=== PATIENT | female | born 1955 | race Caucasian/White ===

== ENCOUNTER 2016-12-23 12:52 | Outpatient (CLI) | payer MEDICAID | END 2016-12-23 12:53 | disposition home or self-care (01) | DX: L40.0 Psoriasis vulgaris (principal); Z79.899 Other long term (current) drug therapy ==

== ENCOUNTER 2017-01-20 10:23 | Outpatient (CLI) | payer MEDICAID | END 2017-01-20 10:24 | disposition home or self-care (01) | DX: L40.0 Psoriasis vulgaris (principal); Z79.899 Other long term (current) drug therapy ==

== ENCOUNTER 2017-02-20 09:06 | Outpatient (CLI) | payer MEDICAID | END 2017-02-20 09:07 | disposition home or self-care (01) | DX: L40.0 Psoriasis vulgaris (principal); Z79.899 Other long term (current) drug therapy ==

== ENCOUNTER 2017-03-27 10:20 | Outpatient (CLI) | payer MEDICAID ==
[2017-03-27 17:52] LABS: EOSINOPHILS # (AUTO) 0.1 10^3/uL (0.0-0.7); EOSINOPHILS % (AUTO) 1.5 %; HCT - HEMATOCRIT 39.7 % (37.0-47.0); HGB - HEMOGLOBIN 13.2 g/dL (12.0-16.0); LYMPHOCYTES # (AUTO) 0.7 10^3/uL (1.5-3.5); LYMPHOCYTES % (AUTO) 14.8 %; MEAN CORPUSCULAR HEMOGLOBIN 34.5 pg (27.0-31.0); MEAN CORPUSCULAR HGB CONC 33.2 g/dL (32.0-36.0); MEAN PLATELET VOLUME 7.7 fL (7.9-10.8); MONOCYTES % (AUTO) 21.1 %; NEUTROPHILS % (AUTO) 61.6 %; NUCLEATED RED BLOOD CELLS AUTO 0.2 /100WBC; RED BLOOD COUNT 3.82 10^6/uL (4.20-5.40); RED CELL DISTRIBUTION WIDTH 14.4 % (12.0-15.0); UNCORRECTED WHITE BLOOD COUNT 4.9 x10^3/uL; WHITE BLOOD COUNT 4.9 x10^3/uL (4.8-10.8)
[2017-03-27 18:07] LABS: ALBUMIN/GLOBULIN RATIO 1.4 (1.0-2.2); BILIRUBIN,TOTAL 0.6 mg/dL (0.2-1.0); CALCIUM 9.3 mg/dL (8.5-10.3); CREATININE 0.7 mg/dL (0.4-1.0); POTASSIUM 4.4 mmol/L (3.5-5.0); TOTAL PROTEIN 7.3 g/dL (6.7-8.2)
== END 2017-03-27 10:21 | disposition home or self-care (01) ==
LOC: LAB.F 10:20
PROVIDERS: ATTEND Physician Assistant Medical
DX: L40.0 Psoriasis vulgaris (principal)
CPT/HCPCS: 36415; 80053; 85025

== ENCOUNTER 2017-04-08 14:30 | Outpatient (CLI) | payer MEDICAID ==
[2017-04-08 17:44] LABS: BASOPHILS # (AUTO) 0.1 10^3/uL (0.0-0.1); BASOPHILS % (AUTO) 1.1 %; EOSINOPHILS # (AUTO) 0.1 10^3/uL (0.0-0.7); EOSINOPHILS % (AUTO) 1.3 %; HCT - HEMATOCRIT 36.2 % (37.0-47.0); HGB - HEMOGLOBIN 12.1 g/dL (12.0-16.0); LYMPHOCYTES # (AUTO) 1.1 10^3/uL (1.5-3.5); LYMPHOCYTES % (AUTO) 20.9 %; MEAN CORPUSCULAR HEMOGLOBIN 34.5 pg (27.0-31.0); MEAN CORPUSCULAR HGB CONC 33.4 g/dL (32.0-36.0); MEAN CORPUSCULAR VOLUME 103.2 fL (81.0-99.0); MONOCYTES % (AUTO) 19.5 %; NEUTROPHILS # (AUTO) 3.1 10^3/uL (1.5-6.6); NEUTROPHILS % (AUTO) 57.2 %; RED BLOOD COUNT 3.51 10^6/uL (4.20-5.40); RED CELL DISTRIBUTION WIDTH 14.3 % (12.0-15.0); UNCORRECTED WHITE BLOOD COUNT 5.4 x10^3/uL; WHITE BLOOD COUNT 5.4 x10^3/uL (4.8-10.8)
[2017-04-08 17:57] LABS: ALBUMIN/GLOBULIN RATIO 1.5 (1.0-2.2); BILIRUBIN,TOTAL 0.5 mg/dL (0.2-1.0); CALCIUM 9.7 mg/dL (8.5-10.3); CREATININE 0.8 mg/dL (0.4-1.0); POTASSIUM 4.4 mmol/L (3.5-5.0); TOTAL PROTEIN 7.6 g/dL (6.7-8.2)
== END 2017-04-08 14:31 | disposition home or self-care (01) ==
LOC: LAB.F 14:30
PROVIDERS: ATTEND Physician Assistant Medical
DX: L40.0 Psoriasis vulgaris (principal)
CPT/HCPCS: 36415; 80053; 85025

== ENCOUNTER 2017-04-25 09:47 | Outpatient (CLI) | payer MEDICAID ==
[2017-04-25 17:30] LABS: BASOPHILS # (AUTO) 0.1 10^3/uL (0.0-0.1); BASOPHILS % (AUTO) 0.9 %; EOSINOPHILS # (AUTO) 0.1 10^3/uL (0.0-0.7); EOSINOPHILS % (AUTO) 1.6 %; HCT - HEMATOCRIT 39.4 % (37.0-47.0); HGB - HEMOGLOBIN 13.2 g/dL (12.0-16.0); LYMPHOCYTES # (AUTO) 0.9 10^3/uL (1.5-3.5); LYMPHOCYTES % (AUTO) 15.2 %; MEAN CORPUSCULAR HEMOGLOBIN 34.8 pg (27.0-31.0); MEAN CORPUSCULAR HGB CONC 33.5 g/dL (32.0-36.0); MEAN CORPUSCULAR VOLUME 103.9 fL (81.0-99.0); MEAN PLATELET VOLUME 7.8 fL (7.9-10.8); MONOCYTES # (AUTO) 0.9 10^3/uL (0.0-1.0); MONOCYTES % (AUTO) 15.8 %; NEUTROPHILS # (AUTO) 3.7 10^3/uL (1.5-6.6); NEUTROPHILS % (AUTO) 66.5 %; RED BLOOD COUNT 3.79 10^6/uL (4.20-5.40); RED CELL DISTRIBUTION WIDTH 14.4 % (12.0-15.0); UNCORRECTED WHITE BLOOD COUNT 5.6 x10^3/uL; WHITE BLOOD COUNT 5.6 x10^3/uL (4.8-10.8)
[2017-04-25 20:36] LABS: ALBUMIN/GLOBULIN RATIO 1.3 (1.0-2.2); BILIRUBIN,TOTAL 0.5 mg/dL (0.2-1.0); CALCIUM 9.6 mg/dL (8.5-10.3); CREATININE 0.7 mg/dL (0.4-1.0); POTASSIUM 4.3 mmol/L (3.5-5.0); TOTAL PROTEIN 7.9 g/dL (6.7-8.2)
== END 2017-04-25 09:48 | disposition home or self-care (01) ==
LOC: LAB.F 09:47
PROVIDERS: ATTEND Physician Assistant Medical
DX: L40.0 Psoriasis vulgaris (principal)
CPT/HCPCS: 36415; 80053; 85025

== ENCOUNTER 2017-05-15 09:04 | Outpatient (CLI) | payer MEDICAID ==
[2017-05-15 17:56] LABS: BASOPHILS # (AUTO) 0.1 10^3/uL (0.0-0.1); BASOPHILS % (AUTO) 2.2 %; EOSINOPHILS # (AUTO) 0.1 10^3/uL (0.0-0.7); EOSINOPHILS % (AUTO) 2.1 %; HCT - HEMATOCRIT 37.8 % (37.0-47.0); HGB - HEMOGLOBIN 12.8 g/dL (12.0-16.0); LYMPHOCYTES % (AUTO) 26.7 %; MEAN CORPUSCULAR HEMOGLOBIN 35.3 pg (27.0-31.0); MEAN CORPUSCULAR VOLUME 103.8 fL (81.0-99.0); MONOCYTES # (AUTO) 0.8 10^3/uL (0.0-1.0); MONOCYTES % (AUTO) 21.6 %; NEUTROPHILS # (AUTO) 1.9 10^3/uL (1.5-6.6); NEUTROPHILS % (AUTO) 47.4 %; NUCLEATED RED BLOOD CELLS AUTO 0.3 /100WBC; RED BLOOD COUNT 3.64 10^6/uL (4.20-5.40); UNCORRECTED WHITE BLOOD COUNT 3.9 x10^3/uL; WHITE BLOOD COUNT 3.9 x10^3/uL (4.8-10.8)
[2017-05-15 18:21] LABS: ALBUMIN/GLOBULIN RATIO 1.7 (1.0-2.2); BILIRUBIN,TOTAL 0.4 mg/dL (0.2-1.0); CALCIUM 9.4 mg/dL (8.5-10.3); CREATININE 0.6 mg/dL (0.4-1.0); POTASSIUM 4.3 mmol/L (3.5-5.0); TOTAL PROTEIN 7.2 g/dL (6.7-8.2)
== END 2017-05-15 09:05 | disposition home or self-care (01) ==
LOC: LAB.F 09:04
PROVIDERS: ATTEND Physician Assistant Medical
DX: L40.0 Psoriasis vulgaris (principal)
CPT/HCPCS: 36415; 80053; 85025

== ENCOUNTER 2017-06-11 10:09 | Outpatient (CLI) | payer MEDICAID ==
[2017-06-11 17:42] LABS: BASOPHILS % (AUTO) 1.1 %; EOSINOPHILS # (AUTO) 0.1 10^3/uL (0.0-0.7); EOSINOPHILS % (AUTO) 1.6 %; HCT - HEMATOCRIT 39.3 % (37.0-47.0); HGB - HEMOGLOBIN 13.2 g/dL (12.0-16.0); LYMPHOCYTES # (AUTO) 0.9 10^3/uL (1.5-3.5); LYMPHOCYTES % (AUTO) 20.6 %; MEAN CORPUSCULAR HEMOGLOBIN 34.1 pg (27.0-31.0); MEAN CORPUSCULAR HGB CONC 33.5 g/dL (32.0-36.0); MEAN CORPUSCULAR VOLUME 101.9 fL (81.0-99.0); MEAN PLATELET VOLUME 7.9 fL (7.9-10.8); MONOCYTES # (AUTO) 0.8 10^3/uL (0.0-1.0); MONOCYTES % (AUTO) 20.1 %; NEUTROPHILS # (AUTO) 2.4 10^3/uL (1.5-6.6); NEUTROPHILS % (AUTO) 56.6 %; NUCLEATED RED BLOOD CELLS AUTO 0.1 /100WBC; RED BLOOD COUNT 3.86 10^6/uL (4.20-5.40); RED CELL DISTRIBUTION WIDTH 12.9 % (12.0-15.0); UNCORRECTED WHITE BLOOD COUNT 4.2 x10^3/uL; WHITE BLOOD COUNT 4.2 x10^3/uL (4.8-10.8)
[2017-06-11 18:16] LABS: ALBUMIN/GLOBULIN RATIO 1.2 (1.0-2.2); BILIRUBIN,TOTAL 0.4 mg/dL (0.2-1.0); CALCIUM 9.4 mg/dL (8.5-10.3); CREATININE 0.6 mg/dL (0.4-1.0); POTASSIUM 4.1 mmol/L (3.5-5.0); TOTAL PROTEIN 7.7 g/dL (6.7-8.2)
== END 2017-06-11 10:10 | disposition home or self-care (01) ==
LOC: LAB.F 10:09
PROVIDERS: ATTEND Physician Assistant Medical
DX: Z79.899 Other long term (current) drug therapy (principal)
CPT/HCPCS: 36415; 80053; 85025

== ENCOUNTER 2017-07-27 10:18 | Emergency (ER) | payer MEDICAID ==
[2017-07-27 10:25] VITALS: BP 148/89
[2017-07-27] MEDS ORDERED: IBUPROFEN 400 MG TABLET PO STA (10:44)
[2017-07-27] MEDS ORDERED: ACETAMINOPHEN 325 MG TABLET PO STA (10:44)
--- NOTE | 2017-07-27 10:47 | ED Physician Documentation ---
History of Present Illness - Stated complaint Stated Complaint: L SHOULDER INJURY - Chief complaint Chief Complaint: Trauma Ext - Additonal information Additional information: hx from pt 62 female trip and fall -> L shoulder injury no head neck or other injury no blood thinners Review of Systems Constitutional: denies: Fever Cardiac: denies: Chest pain / pressure GI: denies: Abdominal Pain Musculoskeletal: reports: Joint pain. denies: Neck pain Neurologic: denies: Head injury Endocrine: denies: Easy bruising / bleeding Immunocompromised: denies: Immunocompromised PD PAST MEDICAL HISTORY - Past Medical History Cardiovascular: Hypertension Respiratory: Pneumonia Neuro: None Endocrine/Autoimmune: None GI: GERD : None HEENT: None Psych: Anxiety Musculoskeletal: None Derm: Psoriasis - Past Surgical History Past Surgical History: No General: EGD Derm: Skin cancer surgery - Present Medications Home Medications: Ambulatory Orders Medication Instructions Recorded Confirmed LORazepam [Ativan] 1 mg PO PRN PRN 11/23/15 07/27/17 Triamterene/Hydrochlorothiazid 1 tab PO DAILY 11/23/15 07/27/17 [Triamterene-Hctz 37.5-25 mg Cp] Lidocaine Patch 5% [Lidoderm Patch] 1 each TOP DAILY PRN #10 patch 07/27/17 - Allergies Allergies/Adverse Reactions: Allergies Allergy/AdvReac Type Severity Reaction Status Date / Time Sulfa (Sulfonamide AdvReac Hallucinati Verified 11/23/15 10:19 Antibiotics) ons - Social History Does the pt smoke?: Yes Smoking Status: Current every day smoker Does the pt drink ETOH?: Yes Does the pt have substance abuse?: No - Immunizations Immunizations are current?: No - POLST Patient has POLST: No PD ED PE NORMAL - Vitals Vital signs reviewed: Yes - HEENT HEENT: Atraumatic - Neck Neck: No bony TTP - Cardiac Cardiac: RRR - Respiratory Respiratory: No respiratory distress, Clear bilaterally - Extremities Extremities: Other (L shoulder with bruising ant and lateral, limited ROM 2/2 pain, TTP humeral head, MSV intact including deltoid) Results - Vitals Vitals: Vital Signs - 24 hr 07/27/17 10:20 Temperature 36.7 C Heart Rate 92 Respiratory 16 Rate Blood Pressure 148/89 H O2 Saturation 96 Oxygen O2 Source Room air - Rads (name of study) shoulder Radiology: See rad report (neg) Departure - Departure Disposition: Home, Self Care Clinical Impression: Contusion of shoulder, left Qualifiers: Encounter type: initial encounter Qualified Code(s): S40.012A - Contusion of left shoulder, initial encounter Condition: Good Instructions: ED Contusion Shoulder Follow-Up: Mayra Cordoba PA [Primary Care Provider] - Prescriptions: Lidocaine Patch 5% [Lidoderm Patch] 1 each TOP DAILY PRN #10 patch PRN Reason: Pain Comments: Thankfully the xray does not show any fracture or dislocation. Recommend you wear the sling as needed for but do some daily range of motion to prevent scar tissue from forming in the shoulder capsule. Motrin, tylenol, lidocaine patches and ice as needed for the pain If still very painful in two weeks, i recommend that you follow up with your PMD for a recheck and consideration of further imaging Also please get your blood pressure rechecked - it was high today Forms: Activity restrictions
[2017-07-27] MEDS ORDERED: ACETAMINOPHEN 325 MG TABLET PO ONE (10:55)
[2017-07-27] MEDS ORDERED: IBUPROFEN 400 MG TABLET PO ONE (10:55)
--- NOTE | 2017-07-27 11:06 | XRAY Preliminary Report ---
Exam: XR Shoulder 3 View LT IMPRESSION: Normal examination of the left shoulder. [facility] SITE ID: [id number]
--- NOTE | 2017-07-27 11:09 | XRAY Report ---
EXAM: LEFT SHOULDER RADIOGRAPHY 3 VIEWS EXAM DATE: 07/27/2017. CLINICAL HISTORY: Fell. Limited range of motion. COMPARISON: None. TECHNIQUE: AP, Grashey and scapular Y views. FINDINGS: Bones: Normal. No fracture or bone lesion. Joints: The glenohumeral and acromioclavicular joints appear normal. Soft tissues: No calcifications. The visualized lungs appear clear. IMPRESSION: Normal examination of the left shoulder. [facility] Referring Provider Line: [phone] SITE ID: [id number]
== END 2017-07-27 11:47 | disposition home or self-care (01) ==
LOC: ED 10:18
DX: S40.012A Contusion of left shoulder, initial encounter (principal); W01.0XXA Fall on same level from slipping, tripping and stumbling without subsequent striking against object, initial encounter; I10 Essential (primary) hypertension; K21.9 Gastro-esophageal reflux disease without esophagitis; F17.200 Nicotine dependence, unspecified, uncomplicated
CPT/HCPCS: 73030; 99283; A9270

== ENCOUNTER 2019-01-07 09:33 | Outpatient (CLI) | payer MEDICARE ==
--- NOTE | 2019-01-08 09:13 | CT Report ---
Reason: NICOTINE DEPENDENCE,CIGARETTES,UNCOMPLICATED Procedure Date: 01/07/2019 Accession Number: [id number] / [id number] Procedure: CT - Low Dose Lung Cancer Screen CPT Code: FULL RESULT: EXAM CT LUNG SCREEN EXAM DATE: 01/07/2019 09:52 AM. HISTORY: 63-year-old patient with [id number] smoking history. Currently smoking: Yes. . COMPARISON: None. TECHNIQUE: CT examination of the entire thorax without contrast was performed using low-dose technique. Thin section coronal, axial, sagittal and MIP axial images were obtained. In accordance with CT protocol optimization, one or more of the following dose reduction techniques were utilized for this exam: automated exposure control, adjustment of mA and/or KV based on patient size, or use of iterative reconstructive technique. FINDINGS: Nodules: Right upper lobe: 4 mm solid nodule 19/4; calcific density 4 mm pleural-based nodule lateral 24/4; 4 mm oval solid nodule medial 24/4; semisolid 4 mm pulmonary nodule associated with calcification 27/4; semisolid 3 mm pulmonary nodule central 27/4; 3 mm semisolid nodule 31/4. Right middle lobe: None. Right lower lobe: None. Left upper lobe: 4 mm solid pleural-based nodule along the major fissure 56/4. Left lower lobe: 3 mm semisolid nodule lateral lower lobe 107/4. Emphysema: Minimal upper lobe paraseptal emphysema. Pleura: Minor pleural parenchymal scarring changes in the apices. Aorta: Unremarkable. Mediastinum: Unremarkable. Coronary calcifications: None. Other pulmonary findings: None. Other extrapulmonary findings: None. IMPRESSION: Lung-RADS ASSESSMENT CATEGORY: 2 - benign appearance. Probability of malignancy: 1%. RECOMMENDATION: Recommended follow up based on Lung-RADS guidelines. [facility]
== END 2019-01-07 09:34 | disposition home or self-care (01) ==
LOC: DI 09:33
PROVIDERS: ATTEND Physician Assistant
DX: Z12.2 Encounter for screening for malignant neoplasm of respiratory organs (principal); F17.210 Nicotine dependence, cigarettes, uncomplicated

== ENCOUNTER 2019-03-27 22:56 | Emergency (ER) | payer MEDICARE, MEDICAID ==
--- NOTE | 2019-03-28 00:14 | ED Physician Documentation ---
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 No: Weakness, Numbness Contributing factors: No: Anticoagulated, Prior ortho surgery Similar symptoms before: Has not had sx before Recently seen: Not recently seen - Additonal information Additional information: per patient, walking up stairs at home tonight and lost her balance, fell backwards when she got to the 3rd stair. She fell onto outstretched LUE and c/o sudden onset pain with deformity at left wrist. She is right hand dominant. She denies any other injury. She denies head injury, denies LOC. She has been drinking alcohol tonight (wine) and spilled red wine onto her shirt when she fell. Review of Systems Cardiac: reports: Reviewed and negative Respiratory: reports: Reviewed and negative GI: reports: Reviewed and negative Skin: denies: Abrasion (s), Laceration (s) Musculoskeletal: reports: Joint pain (left wrist), Joint swelling (left wrist). denies: Neck pain, Back pain Neurologic: denies: Generalized weakness, Focal weakness, Numbness, Headache, Head injury, LOC PD PAST MEDICAL HISTORY - Past Medical History Past Medical History: No Other Past Medical History: denies - Past Surgical History Past Surgical History: No - Allergies Allergies/Adverse Reactions: Allergies Allergy/AdvReac Type Severity Reaction Status Date / Time Sulfa (Sulfonamide AdvReac Unknown Verified 03/27/19 23:05 Antibiotics) - Social History Does the pt smoke?: Yes Smoking Status: Current every day smoker Does the pt drink ETOH?: Yes ETOH Use: Wine Does the pt have substance abuse?: No - Immunizations Immunizations are current?: Yes PD ED PE NORMAL - Vitals Vital signs reviewed: Yes - General General: Alert and oriented X 3, Well developed/nourished, Other (mild/moderate painful discomfort) - HEENT HEENT: Atraumatic, PERRL, EOMI - Neck Neck: No bony TTP - Back Back: No spinal TTP - Derm Derm: Normal color, Warm and dry - Neuro Neuro: Alert and oriented X 3, 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 No lacerations or abrasions. LTS intact in fingertips with brisk capillary refill. strong radial pulse) Results - Vitals Vitals: Vital Signs - 24 hr 03/27/19 03/28/19 03/28/19 22:59 00:49 01:38 Temperature 36.4 C L Heart Rate 64 75 78 Respiratory 16 16 16 Rate Blood Pressure 118/83 H 140/81 H 109/70 O2 Saturation 100 99 96 Oxygen O2 Source Room air - Rads (name of study) left wrist xrays Radiology: Prelim report reviewed, See rad report repeat/post-reduction left wrist xrays Radiology: Prelim report reviewed, See rad report Procedures - Splint (location) Upper extremity left Splint applied by: Tech, Other (spint applied by tech while I held traction after reduction attempt) Type of splint: Fiberglass, Sugar tong Other: Patient tolerated well, No complications, Neurovascular intact - Reduction Body part reduced: Left, Wrist Fracture or dislocation: Fracture Anesthesia: Hematoma block, Morphine Reduction aftercare: NV intact, Splint applied, Patient tolerated well. No: Xray confirms reduction (minimal improvement on repeat xrays) PD MEDICAL DECISION MAKING - ED course Complexity details: reviewed results, re-evaluated patient, considered differential, d/w patient ED course: patient was calm and cooperative during the times I was in room with her. She admitted to alcohol intake tonight but was conversant and appropriate. I performed a hematoma block and then attempted reduction of the fracture; there appeared to be modest improvement in alignment but repeat xrays showed minimal improvement and 71 degrees of dorsal angulation. Unfortunately, prior to the results of the repeat xrays, patient left the ED. While she did indicate to me that she was concerned that her ride was going to leave without her, she did not indicate to me at any time that she was unhappy with the care she was receiving in ED. After the attempt at reduction, I did explain to her that, if the xrays did not show adequate improvement in alignment, I would need to contact the orthopedic surgeon and that he would probably need to come to ED to reduce the fracture; she indicated understanding of this plan and expressed no dissatisfaction with this. Departure - Departure Disposition: ED Elope Clinical Impression: Left wrist fracture Qualifiers: Encounter type: initial encounter Fracture type: closed Qualified Code(s): S62.102A - Fracture of unspecified carpal bone, left wrist, initial encounter for closed fracture Condition: Stable Discharge Date/Time: 03/28/19 03:50
--- NOTE | 2019-03-28 00:22 | XRAY Report ---
Reason: fall/pain Procedure Date: 03/28/2019 Accession Number: [id number] / [id number] Procedure: XR - Hand 3 View LT CPT Code: FULL RESULT: EXAM: LEFT HAND RADIOGRAPHY EXAM DATE: 03/27/2019 11:46 PM. CLINICAL HISTORY: Fell down the stairs, deformity, pain, swelling. COMPARISON: None. TECHNIQUE: 3 views. FINDINGS IMPRESSION: 1. There is a severely impacted severe dorsal displaced intra-articular fracture of the distal radius with comminution. 2. There is a mild impacted and dorsal displaced distal ulnar fracture as well. 3. Bones are moderately osteopenic. 4. 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 Moderate to severe degenerative change elsewhere about the joints of the hand. [facility]
--- NOTE | 2019-03-28 00:24 | XRAY Report ---
Reason: fall/pain Procedure Date: 03/28/2019 Accession Number: [id number] / [id number] Procedure: XR - Wrist 4 View LT CPT Code: FULL RESULT: EXAM: LEFT WRIST RADIOGRAPHY EXAM DATE: 03/27/2019 11:46 PM. CLINICAL HISTORY: Fall, pain, deformity, swelling. COMPARISON: None. TECHNIQUE: 4 views. A total of 5 exposures are provided for review. FINDINGS IMPRESSION: 1. Bones are moderately osteopenic. 2. There is a severe dorsal displaced, angulated, comminuted, as well as impacted fracture of the distal radial metaphysis. 3. Mild impacted, dorsally displaced and angulated distal ulnar fracture is also seen. 4. No definite additional fracture demonstrated. 5. Moderate to severe localized soft tissue swelling. [facility]
[2019-03-28] MEDS ORDERED: MORPHINE 2 MG/ML CARPUJECT IVP STA ×2 (00:30→02:57)
[2019-03-28] MEDS ORDERED: LIDOCAINE 1% 2 ML VIAL SUBQ STA (00:40)
[2019-03-28] MEDS ORDERED: LIDOCAINE 1% 2 ML VIAL ONE (00:57)
[2019-03-28 01:39] VITALS: BP 109/70
--- NOTE | 2019-03-28 03:50 | XRAY Report ---
Reason: post-reduction Procedure Date: 03/28/2019 Accession Number: [id number] / [id number] Procedure: XR - Wrist 3 View LT CPT Code: FULL RESULT: EXAM: LEFT WRIST RADIOGRAPHY EXAM DATE: 03/28/2019 03:22 AM. CLINICAL HISTORY: Post-reduction. COMPARISON: HAND 3 VIEW LT 03/27/2019 11:46 PM WRIST 4 VIEW LT 03/27/2019 11:46 PM. TECHNIQUE: 3 views. FINDINGS IMPRESSION: 1. Presence of cast obscures bony detail. 2. Severe comminuted intra-articular fracture of the distal radius is again seen. Alignment on the frontal projection is near anatomic, other than impaction. However, on the lateral projection, there is approximately 71 degrees dorsal angulation. This is minimally improved from the prior. 3. Impacted mild dorsal angulated fracture of the distal ulna is similar to the prior study. 4. Localized soft tissue swelling noted. [facility]
== END 2019-03-28 03:50 | disposition left against medical advice (07) ==
LOC: MERGE 22:56 → ED 22:56
DX: S52.572A Other intraarticular fracture of lower end of left radius, initial encounter for closed fracture (principal); S52.602A Unspecified fracture of lower end of left ulna, initial encounter for closed fracture; W10.9XXA Fall (on) (from) unspecified stairs and steps, initial encounter; Y93.01 Activity, walking, marching and hiking; Y92.009 Unspecified place in unspecified non-institutional (private) residence as the place of occurrence of the external cause; F17.200 Nicotine dependence, unspecified, uncomplicated
CPT/HCPCS: 25600; 96374; 96376; 99283

== ENCOUNTER 2019-03-28 10:55 | Emergency (ER) | payer MEDICARE ==
--- NOTE | 2019-03-28 12:52 | ED Physician Documentation ---
PD HPI UPPER EXT INJURY - Stated complaint Stated Complaint: LT ARM PAIN - Chief complaint Chief Complaint: General - History obtained from History obtained from: Patient - History of Present Illness Location: Left, Wrist Type of injury: Fall Where injury occurred: Home Associated symptoms: Swelling (in fingers the past few hours. No pain into fingers, is just at the wrist itself.). No: Weakness, Numbness Contributing factors: No: Anticoagulated Recently seen: Emergency Dept (last night and had xray and reduction, then splint, but left before getting sling/ scripts/ follow up instructions. Here as her splint and arm are hurting, and for Rx meds.) Review of Systems Neurologic: denies: Focal weakness (can feel and move fingers but says slow to move due to swelling and causing pain. Splint in place.), Numbness PD PAST MEDICAL HISTORY - Past Medical History Past Medical History: Yes Cardiovascular: Hypertension Respiratory: Pneumonia Endocrine/Autoimmune: None GI: GERD : None HEENT: None Psych: Anxiety Musculoskeletal: None Derm: Psoriasis - Past Surgical History Past Surgical History: No General: EGD Derm: Skin cancer surgery - Present Medications Home Medications: Ambulatory Orders Medication Instructions Recorded Confirmed LORazepam [Ativan] 1 mg PO PRN PRN 11/23/15 07/27/17 Triamterene/Hydrochlorothiazid 1 tab PO DAILY 11/23/15 07/27/17 [Triamterene-Hctz 37.5-25 mg Cp] Naproxen 500 mg PO BID #20 tablet 03/28/19 Oxycodone HCl/Acetaminophen 1 each PO Q6H PRN #20 tablet 03/28/19 [Percocet 5-325 mg Tablet] - Allergies Allergies/Adverse Reactions: Allergies Allergy/AdvReac Type Severity Reaction Status Date / Time Sulfa (Sulfonamide AdvReac Hallucinati Verified 03/29/19 10:01 Antibiotics) ons - Social History Does the pt smoke?: Yes Smoking Status: Current every day smoker Does the pt drink ETOH?: Yes Does the pt have substance abuse?: No - Immunizations Immunizations are current?: No - POLST Patient has POLST: No PD ED PE NORMAL - Vitals Vital signs reviewed: Yes - General General: Alert and oriented X 3, Well developed/nourished - Derm Derm: Normal color, Warm and dry - Extremities Extremities: Other (some edema of fingers with mild dusky color. Good cap refill. Splint in place.) Results - Vitals Vitals: Oxygen O2 Source Room air Procedures - Splint (location) wrist Splint applied by: Tech Type of splint: Fiberglass Other: Patient tolerated well, No complications, Neurovascular intact, Sling provided PD MEDICAL DECISION MAKING - ED course Complexity details: reviewed results, considered differential (looked at prior ED record. Splint seems to be maybe tight, with swelling of fingers. Had Tech replace it and patient says it hurts less. Does not seem like compartment syndrome. ), d/w patient Departure - Departure Disposition: Home, Self Care Clinical Impression: Aftercare for cast or splint check or change Wrist fracture, left Qualifiers: Encounter type: subsequent encounter Fracture type: closed Condition: Stable Record reviewed to determine appropriate education?: Yes Instructions: ED Fx Colles Wrist Redu Requ Follow-Up: Manpreet Cobian MD [Provider Admit Priv/Credential] - Storm Lerner MD [Provider Admit Priv/Credential] - Prescriptions: Naproxen 500 mg PO BID #20 tablet Oxycodone HCl/Acetaminophen [Percocet 5-325 mg Tablet] 1 each PO Q6H PRN #20 tablet PRN Reason: pain Comments: Keep the splint on. Use a sling to elevate and rest the arm and wrist to reduce swelling. Use naproxen anti-inflammatory for pain and swelling twice daily with food. Add Tylenol or Percocet if needed for pains. Call the orthopedic office tomorrow for follow-up appointment for mid to later part of this coming week. Return sooner if problems. Discharge Date/Time: 03/28/19 13:47
[2019-03-28] MEDS ORDERED: NAPROXEN 250 MG TABLET PO STA (13:00)
[2019-03-28] MEDS ORDERED: oxyCODONE 5 MG TABLET PO STA (13:00)
[2019-03-28 13:49] VITALS: BP 144/82
== END 2019-03-28 13:47 | disposition home or self-care (01) ==
LOC: ED 10:55
DX: S52.572A Other intraarticular fracture of lower end of left radius, initial encounter for closed fracture (principal); S52.602A Unspecified fracture of lower end of left ulna, initial encounter for closed fracture; W10.9XXA Fall (on) (from) unspecified stairs and steps, initial encounter; Y93.01 Activity, walking, marching and hiking; Y92.009 Unspecified place in unspecified non-institutional (private) residence as the place of occurrence of the external cause; I10 Essential (primary) hypertension; F17.200 Nicotine dependence, unspecified, uncomplicated
CPT/HCPCS: 25600; 29125; 73110; 73130; 96374; 96376; 99282; 99283; A9270

== ENCOUNTER 2019-10-27 10:23 | Outpatient (CLI) | payer MEDICARE, MEDICAID ==
--- NOTE | 2019-10-28 09:58 | Mammography Report ---
Reason: SCREENING MAMMO Procedure Date: 10/27/2019 Accession Number: [id number] / [id number] Procedure: MGS - Screening Mammo Dig Bilat CPT Code: Final Report FULL RESULT: EXAM: Screening Mammo Dig Bilat DATE: 10/27/2019 10:43 AM CLINICAL HISTORY: The patient is an asymptomatic 64-year-old female. Second degree family history of breast cancer. TECHNIQUE: (B) - Bilateral CC and MLO views were obtained. COMPARISON: 12/10/2013 and 10/18/2010 PARENCHYMAL PATTERN: (D) - The breasts demonstrate heterogeneously dense fibroglandular parenchyma bilaterally. FINDINGS: The pattern of glandular asymmetry is stable given positional variation. There are no suspicious masses, calcifications, or areas of distortion. Note: The previously noted sebaceous cyst in the left breast has resolved. IMPRESSION: Negative examination. BI-RADS category 1. RECOMMENDATION: (ANNUAL) - Recommend routine annual screening mammography. BI-RADS CATEGORY: (1) - Negative. STANDARD QUALIFYING STATEMENTS: This examination was reviewed with the aid of Computer-Aided Detection (CAD). A negative or benign imaging report should not preclude biopsy if clinically suspicious findings are present. Dense breasts may obscure an underlying neoplasm.
== END 2019-10-27 10:24 | disposition home or self-care (01) ==
LOC: DI.S 10:23
PROVIDERS: ATTEND Physician Assistant
DX: Z12.31 Encounter for screening mammogram for malignant neoplasm of breast (principal); Z80.3 Family history of malignant neoplasm of breast
CPT/HCPCS: 77067

== ENCOUNTER 2021-08-21 08:00 | Outpatient (CLI) | payer MEDICARE, MEDICAID ==
--- NOTE | 2021-08-21 14:29 | XRAY Report ---
PROCEDURE: Hand 3 View LT INDICATIONS: PAIN IN JOINTS OF LEFT HAND TECHNIQUE: 3 views of the hand(s) acquired. COMPARISON: X-ray hand report 03/28/2019. Images are not available for comparison. FINDINGS: Bones: No fractures or dislocations. No suspicious bony lesions. Diffuse IP degenerative narrowing is present with areas of subchondral sclerosis. Radiocarpal narrowing as well as first CMC narrowing are also present. Diffuse osteopenia is present. No definitive erosions. There is mild deformity of the distal ulna suggestive of old fracture. Soft tissues: No suspicious soft tissue calcifications. IMPRESSION: No visualized acute fracture or dislocation. However, occult injury cannot be excluded. Recommend camila rt interval imaging follow-up in 7-10 days as clinically indicated for additional evaluation. Diffuse arthritic change. Reviewed by: Stephanie Oh MD on 08/21/2021 2:27 PM PDT Approved by: Stephanie Oh MD on 08/21/2021 2:27 PM PDT Station ID: [id number]
== END 2021-08-21 23:59 | disposition home or self-care (01) ==
LOC: DI.S 08:00
PROVIDERS: ATTEND Physician Assistant Medical
DX: M25.542 Pain in joints of left hand (principal)

== ENCOUNTER 2022-02-04 09:40 | Outpatient (CLI) | payer MEDICARE, MEDICAID ==
--- NOTE | 2022-02-04 12:26 | CT Report ---
PROCEDURE: Low Dose Lung Cancer Screen INDICATIONS: EX SMOKER TECHNIQUE: Noncontrast low-dose images were acquired from the pulmonary apices to the posterior costophrenic ang les. Multiplanar MIP reformats were then acquired. For radiation dose reduction, the following was used: automated exposure control, adjustment of mA and/or kV according to patient size. COMPARISON: 01/07/2019 FINDINGS: Image quality: Excellent. Lungs and pleura: Central and peripheral airways are normal in caliber. There is mild bilateral jimi hilar bronchial wall thickening. Trace endotracheal mucus is present. Mild paraseptal emphysematous c hanges at the apices. Solid 4 mm right apical nodule, 4/72, and calcified left apical/upper lobe nodu le measuring 3 mm, 4/87. A 3 mm calcified superior segment right lower lobe nodule, 4/122 and 4 mm ju xta fissural left midlung nodule, 4/122. No suspicious masses or acute consolidations. No pleural eff usions or pleural calcifications. Mediastinum: Heart size is normal. No pericardial effusion. No mediastinal adenopathy by size crit eria. Thoracic aorta and central pulmonary arteries are normal in size. Esophagus is normal in mary ann felix. No hiatal hernia. Bones and chest wall: No suspicious bony lesions. Moderately severe degenerative changes incidentall y noted in lower cervical spine. No vertebral body compression fractures. No axillary or supraclavic ular adenopathy by size criteria. The thyroid is normal in size and there are no incidental findings . Abdomen: Visualized upper abdomen solid organs and bowel loops appear normal in the absence of contr ast. IMPRESSION: 1. 3 and 4 mm lung nodules seen bilaterally. All are stable in size and morphology compared to the pr ior study and therefore benign. Lung RADS category 2. Annual low-dose chest CT screening is recommend ed. 2. Biapical emphysematous changes and mild chronic bronchial wall thickening consistent with COPD. Reviewed by: Liliam Walker MD on 02/04/2022 12:24 PM PDT Approved by: Liliam Walker MD on 02/04/2022 12:24 PM PDT Station ID: [id number]
== END 2022-02-04 09:41 | disposition home or self-care (01) ==
LOC: DI 09:40
PROVIDERS: ATTEND Nurse Practitioner Family
DX: Z12.2 Encounter for screening for malignant neoplasm of respiratory organs (principal); J43.9 Emphysema, unspecified; R91.8 Other nonspecific abnormal finding of lung field; Z87.891 Personal history of nicotine dependence

== ENCOUNTER 2022-09-12 09:30 | Outpatient (CLI) | payer MEDICARE, MEDICAID | END 2022-09-12 09:31 | disposition critical access hospital (66) | LOC: EMS 09:30 | DX: S69.91XA Unspecified injury of right wrist, hand and finger(s), initial encounter (principal); Y04.2XXA Assault by strike against or bumped into by another person, initial encounter; Y92.009 Unspecified place in unspecified non-institutional (private) residence as the place of occurrence of the external cause | CPT/HCPCS: A0425; A0429 ==

== ENCOUNTER 2022-09-12 09:46 | Emergency (ER) | payer MEDICARE, MEDICAID ==
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
--- NOTE | 2022-09-12 10:53 | XRAY Report ---
PROCEDURE: Elbow 3 View RT INDICATIONS: fall, pain TECHNIQUE: 3 views of the elbow were acquired. COMPARISON: Correlation is made with the accompanying wrist plain films, 09/12/2022 FINDINGS: Bones: No fractures or dislocations. No suspicious bony lesions. Calcifications can be seen along the medial and lateral aspects of the humeral condyles. Soft tissues: There is a moderate elbow joint effusion. No suspicious soft tissue calcifications. IMPRESSION: Moderate joint effusion. No acute bony abnormality is seen. Findings of prior lateral and medial epicondylitis. Reviewed by: Vernon Hoyt MD on 09/12/2022 9:52 AM [facility] Approved by: Vernon Hoyt MD on 09/12/2022 9:52 AM [facility] Station ID: [id number]
--- NOTE | 2022-09-12 10:54 | XRAY Report ---
PROCEDURE: Wrist 4 View RT INDICATIONS: fall, pain TECHNIQUE: 4 views of the wrist were acquired. COMPARISON: The elbow plain films, 09/12/2022. FINDINGS: Bones: No fractures or dislocations. No suspicious bony lesions. Age-appropriate degenerative mary ges are seen. Scaphoid view: No scaphoid fractures are seen. Soft tissues: No suspicious soft tissue calcifications. IMPRESSION: No displaced fractures are seen on these plain films. If there is snuffbox tenderness (or other clinical concern for a fracture not seen on these images) p lease consider a dedicated CT study or a short-term follow-up plain film series, following splinting. Reviewed by: Vernon Hoyt MD on 09/12/2022 9:52 AM [facility] Approved by: Vernon Hoyt MD on 09/12/2022 9:52 AM [facility] Station ID: [id number]
[2022-09-12 11:36] VITALS: BP 140/90
== END 2022-09-12 11:46 | disposition home or self-care (01) ==
LOC: EDUNIT# → ED 09:46
DX: S50.01XA Contusion of right elbow, initial encounter (principal); S63.501A Unspecified sprain of right wrist, initial encounter; W51.XXXA Accidental striking against or bumped into by another person, initial encounter; F17.200 Nicotine dependence, unspecified, uncomplicated
CPT/HCPCS: 99282; 99283

== ENCOUNTER 2023-01-14 09:30 | Outpatient (CLI) | payer MEDICARE, MEDICAID ==
--- NOTE | 2023-01-14 11:14 | CT Report ---
PROCEDURE: Low Dose Lung Cancer Screen INDICATIONS: HISTORY OF SMOKING TECHNIQUE: Noncontrast low-dose axial images were acquired from the pulmonary apices to the posterior costophren ic angles. Multiplanar MIP reformats were then reconstructed. For radiation dose reduction, the follo wing was used: automated exposure control, adjustment of mA and/or kV according to patient size. COMPARISON: None. FINDINGS: Image quality: Good, allowing for low radiation dose Lungs and pleura:No consolidation or effusion. Right Bochdalek's hernia. Scattered scarring/atelectasis, overall similar distribution and appearance compared to prior. Numerous small stable nodules and granulomas. No new or enlarging finding that would change follow-up interval. Mediastinum, heart, and esophagus: No hiatal hernia. Normal heart size. Annular calcifications of the heart. No pathologic adenopathy by size criteria. Chest wall and thyroid: Unremarkable Upper abdomen: Unremarkable on this limited noncontrast low-dose study Bones: Right rib fractures are present, probably nonacute. IMPRESSION: Lung RADS 2: Continue annual screening. Age indeterminate right rib fractures, probably nonacute. Reviewed by: Vipul Sandoval MD on 01/14/2023 11:12 AM PDT Approved by: Vipul Sandoval MD on 01/14/2023 11:12 AM PDT Station ID: [id number]
== END 2023-01-14 09:31 | disposition home or self-care (01) ==
LOC: DI 09:30
PROVIDERS: ATTEND Nurse Practitioner Family
DX: Z12.2 Encounter for screening for malignant neoplasm of respiratory organs (principal); Z87.891 Personal history of nicotine dependence; S22.41XA Multiple fractures of ribs, right side, initial encounter for closed fracture

== ENCOUNTER 2023-03-27 07:00 | Outpatient (CLI) | payer MEDICARE, MEDICAID ==
--- NOTE | 2023-03-27 17:08 | XRAY Report ---
PROCEDURE: Chest 2 View X-Ray INDICATIONS: CHEST CONGESTION TECHNIQUE: 2 views of the chest were acquired. COMPARISON: None. FINDINGS: Surgical changes and devices: None. Lungs and pleura: No pleural effusions or pneumothorax. Lungs are clear. Right apical scarring. Mediastinum: Mediastinal contours appear normal. Heart size is normal. Bones and chest wall: No suspicious bony lesions. Overlying soft tissues appear unremarkable. IMPRESSION: No acute cardiopulmonary process. Reviewed by: Angel Luis Wilkerson on 03/27/2023 5:07 PM PDT Approved by: Angel Luis Wilkerson on 03/27/2023 5:07 PM PDT Station ID: [id number]
== END 2023-03-27 23:59 | disposition home or self-care (01) ==
LOC: DI.S 07:00
PROVIDERS: ATTEND Physician Assistant Medical
DX: R09.89 Other specified symptoms and signs involving the circulatory and respiratory systems (principal)

== ENCOUNTER 2024-06-02 10:55 | Outpatient (CLI) | payer MEDICARE, MEDICAID ==
--- NOTE | 2024-06-03 08:01 | Mammography Report ---
BILATERAL DIGITAL SCREENING MAMMOGRAM 3D/2D: 06/02/2024 CLINICAL: Routine screening. Family history of breast cancer. Comparison is made to exams dated: 10/27/2019 mammogram and 12/10/2013 mammogram - [facility]. There are scattered areas of fibroglandular density in both breasts (category b / 25%-50% glandular t issue). There are benign vascular calcifications in both breasts. No significant masses, calcifications, or other findings are seen in either breast. There has been no significant interval change. IMPRESSION: BENIGN There is no mammographic evidence of malignancy. A 1 year screening mammogram is recommended. Based on the Tyrer Cuzick model (a risk assessment model) the patient's lifetime risk is 2.5% and her 10 year risk is 1.7%. According to the ACR, ACS, and NCCN guidelines, an annual breast MRI exam chanell g with mammogram is recommended if the patient's lifetime risk is 20% or greater. This exam was interpreted at Station ID: [id number]. NOTE: For mammograms, a report in lay terms will be sent to the patient. Approximately 15% of breast malignancies will not be visualized mammographically. In the management of a palpable breast mass, a negative mammogram must not discourage biopsy of a clinically suspicious lesion. Electronically Signed By: Liliam mckeon/perry:06/02/2024 17:32:00 letter sent: No_Letter ACR BI-RADS Category 2: Benign Finding(s) 3342F PARENCHYMAL PATTERN: (A) - The breast(s) demonstrate(s) scattered fibroglandular densities. BI-RADS CATEGORY: (2) - 2 RECOMMENDATION: (ANNUAL) - Recommend routine annual screening mammography. [id number] 1 year screening LATERALITY: (B)
== END 2024-06-02 10:56 | disposition home or self-care (01) ==
LOC: DI.S 10:55
PROVIDERS: ATTEND Nurse Practitioner Family
DX: Z12.31 Encounter for screening mammogram for malignant neoplasm of breast (principal); R92.323 Mammographic fibroglandular density, bilateral breasts; Z85.3 Personal history of malignant neoplasm of breast

== ENCOUNTER 2024-06-07 10:58 | Outpatient (CLI) | payer MEDICARE, MEDICAID ==
--- NOTE | 2024-06-08 13:08 | CT Report ---
PROCEDURE: Lung Cancer Screen INDICATIONS: EX SMOKER TECHNIQUE: A CT scan of the chest was performed. Intravenous contrast media was not administered. Images were re corded and evaluated at appropriate window settings. Reformats: axial MIP of the chest, coronal and s agittal. For radiation dose reduction, the following was used: automated exposure control, adjustment of mA and/or kV according to patient size. COMPARISON: Lung cancer screening chest CT 01/14/2023. FINDINGS: Image quality: Excellent. Prior cancer history: Unsure. Lungs and pleura: No pleural effusions. No pneumothorax. No suspicious pulmonary nodules which requir e follow up. Left major fissure pulmonary nodule measuring 0.2 cm, (12/100), unchanged. A few calcifi ed granuloma. Mediastinum: Heart size is normal. No pericardial effusion. No large vessel abnormality. No mediastin al adenopathy by size criteria. Chest wall and lower neck: Thyroid is unremarkable. No axillary or supraclavicular adenopathy by size . Bones: No aggressive osseous abnormality. Prior right-sided rib fractures. Upper Abdomen: Unremarkable. IMPRESSION: No new or enlarging pulmonary nodules. Lung RAD: 2 - Benign. Recommendation: Continue annual screening in 12 Months with LDCT Non-Lung Significant Findings: None. Reviewed by: Rahul Dave MD on 06/08/2024 1:07 PM PDT Approved by: Rahul Dave MD on 06/08/2024 1:07 PM PDT Station ID: [id number]
== END 2024-06-07 10:59 | disposition home or self-care (01) ==
LOC: DI 10:58
PROVIDERS: ATTEND Nurse Practitioner Family
DX: Z12.2 Encounter for screening for malignant neoplasm of respiratory organs (principal); Z87.891 Personal history of nicotine dependence

== ENCOUNTER 2025-09-09 13:47 | Inpatient (IN) ==
--- OUTSIDE RECORDS SUMMARY | 2025-09-09 14:01 | EXTERNAL MEDICAL SUMMARY RPT | Continuity of Care Document ---
Author Organization [facility] Address [address] [place] [id number] Phone Care Team Providers Care Client Services Director Name Role Phone Unavailable Unavailable Jeffery Monteiro Unavailable Unavailable Allergies and Intolerances date description facility reaction severity 2025-08-12 22:56:49 [facility] (no reactio n) (no severity) 2025-08-23 13:15:53 [facility] (no reactio n) (no severity) 2025-09-01 11:25:42 [facility] (no reactio n) (no severity) Medications date description facility 2025-08-23 00:[address] [facility] 2025-08-23 [facility]25-08-13 00:00 Hydrocodone-Acetaminophen [facility] Problems date description facility 2025-08-13 00:[address] [facility] 2025-08-13 00:00 Dislocation of left elbow [facility] 2025-08-13 03:48 Unspecified dislocat ion of left ulnohumeral joint, initial [facility] 2025-08-13 03:50 Unspecified dislocat ion of left ulnohumeral joint, initial [facility] 2025-08-13 04:19 Unspecified dislocat ion of left ulnohumeral joint, initial [facility] 2025-08-13 04:36 Unspecified dislocat ion of left ulnohumeral joint, initial [facility] 2025-08-18 13:22 Unspecified injury o f left shoulder and upper arm, initial encounter [facility] 2025-08-29 07:36 [facility] left [facility] 2025-08-29 07:36 Unspecified dislocat ion of left ulnohumeral joint, initial [facility] 2025-09-07 16:10 Acute cystitis without hematuri a [facility] 2025-09-08 07:07 Acute cystitis without hematuri a [facility] Procedures date description facility 2025-08-12 00:00 XR forearm left, 2 [facility] 2025-08-13 00:00 XR forearm left, 2 [facility] 2025-08-12 00:00 X-ray of left humerus [facility] 2025-08-23 00:00 XR fluoro, less than [address] [facility] Results/Labs test date facility value unit notes Result panel 1 X-ray report 2025-08-13 00:26 [facility] (missing) (mis sing) (missing) Result panel 2 X-ray report 2025-08-13 00:27 [facility] (missing) (mis sing) (missing) Result panel 3 White blood cell count 2025-08-13 01:01:08 [facility] 6 .6 X10^3/uL (missing) Result panel 4 Automated neutrophil % 2025-08-13 01:01:08 [facility] 7 7.4 % (missing) Result panel 5 Automated lymphocyte % 2025-08-13 01:01:08 [facility] 9 .5 % (missing) Result panel 6 Automated monocyte % 2025-08-13 01:01:08 [facility] 12. 1 % (missing) Result panel 7 Automated eosinophil % 2025-08-13 01:01:08 [facility] 0 .1 % (missing) Result panel 8 Automated basophil % 2025-08-13 01:01:08 [facility] 0.9 % (missing) Result panel 9 Absolute neutrophil count 2025-08-13 01:01:08 [facility] l 5100 /uL (missing) Result panel 10 Absolute lymphocyte count 2025-08-13 01:01:08 [facility] l 600 /uL (missing) Result panel 11 Automated blood monocyte count 2025-08-13 01:01:08 [facility] 800 /uL (missing) Result panel 12 Automated eosinophil count 2025-08-13 01:01:08 [facility] 0 /uL (missing) Result panel 13 Automated basophil count 2025-08-13 01:01:08 [facility] 100 /uL (missing) Result panel 14 Red blood cell count 2025-08-13 01:01:08 [facility] 3.4 2 X10^6/uL (missing) Result panel 15 Serum prothrombin time 2025-08-13 01:01:08 [facility] 1 2.4 SECONDS (missing) Result panel 16 INR in Platelet poor plasma by Coagulation assay 2025-08-13 01:01:08 [facility] 1.1 (missing) (miss ing) Result panel 17 Ethanol [Mass/volume] in Serum or Plasma 2025-08-13 01:01:08 [facility] 218 mg/dL (m issing) Result panel 18 Hemoglobin 2025-08-13 01:01:08 [facility] 11.3 g/d L (missing) Result panel 19 Hematocrit 2025-08-13 01:01:08 [facility] 32.8 % (missing) Result panel 20 White blood cell count 2025-08-13 01:01:08 [facility] 6 .6 X10^3/uL (missing) Result panel 21 Red blood cell count 2025-08-13 01:01:08 [facility] 3.4 2 X10^6/uL (missing) Result panel 22 MCV (mean corpuscular volume ) determination 2025-08-13 01:01:08 [facility] 96.2 fL (mis sing) Result panel 23 Hemoglobin 2025-08-13 01:01:08 [facility] 11.3 g/d L (missing) Result panel 24 Hematocrit 2025-08-13 01:01:08 [facility] 32.8 % (missing) Result panel 25 MCV (mean corpuscular volume ) determination 2025-08-13 01:01:08 [facility] 96.2 fL (mis sing) Result panel 26 Mean corpuscular hemoglobin (MCH) determination 2025-08-13 01:01:08 [facility] 33.2 PG (missing) Result panel 27 Mean corpuscular hemoglobin concentration (MCHC) determination 2025-08-13 01:01:08 [facility] 34.5 % (mis sing) Result panel 28 Red cell distribution width determination 2025-08-13 01:01:08 [facility] 13.8 % (mis sing) Result panel 29 Platelet count 2025-08-13 01:01:08 [facility] 204 X10^3/uL (missing) Result panel 30 Automated neutrophil % 2025-08-13 01:01:08 [facility] 7 7.4 % (missing) Result panel 31 Automated lymphocyte % 2025-08-13 01:01:08 [facility] 9 .5 % (missing) Result panel 32 Automated monocyte % 2025-08-13 01:01:08 [facility] 12. 1 % (missing) Result panel 33 Mean corpuscular hemoglobin (MCH) determination 2025-08-13 01:01:08 [facility] 33.2 PG (missing) Result panel 34 Automated eosinophil % 2025-08-13 01:01:08 [facility] 0 .1 % (missing) Result panel 35 Automated basophil % 2025-08-13 01:01:08 [facility] 0.9 % (missing) Result panel 36 Absolute neutrophil count 2025-08-13 01:01:08 [facility] l 5100 /uL (missing) Result panel 37 Absolute lymphocyte count 2025-08-13 01:01:08 [facility] l 600 /uL (missing) Result panel 38 Automated blood monocyte count 2025-08-13 01:01:08 [facility] 800 /uL (missing) Result panel 39 [facility] Result panel 40 Automated basophil count 2025-08-13 01:01:08 [facility] 100 /uL (missing) Result panel 41 Serum prothrombin time 2025-08-13 01:01:08 [facility] 1 2.4 SECONDS (missing) Result panel 42 INR in Platelet poor plasma by Coagulation assay 2025-08-13 01:01:08 [facility] 1.1 (missing) (miss ing) Result panel 43 Ethanol [Mass/volume] in Serum or Plasma 2025-08-13 01:01:08 [facility] 218 mg/dL (m issing) Result panel 44 Mean corpuscular hemoglobin concentration (MCHC) determination 2025-08-13 01:01:08 [facility] 34.5 % (mis sing) Result panel 45 Red cell distribution width determination 2025-08-13 01:01:08 [facility] 13.8 % (mis sing) Result panel 46 Platelet count 2025-08-13 01:01:08 [facility] 204 X10^3/uL (missing) Result panel 47 White blood cell count 2025-08-13 02:01:07 [facility] 6 .6 X10^3/uL (missing) Result panel 48 Red blood cell count 2025-08-13 02:01:07 [facility] 3.4 2 X10^6/uL (missing) Result panel 49 Hemoglobin 2025-08-13 02:01:07 [facility] 11.3 g/d L (missing) Result panel 50 Hematocrit 2025-08-13 02:01:07 [facility] 32.8 % (missing) Result panel 51 MCV (mean corpuscular volume ) determination 2025-08-13 02:01:07 [facility] 96.2 fL (mis sing) Result panel 52 Mean corpuscular hemoglobin (MCH) determination 2025-08-13 02:01:07 [facility] 33.2 PG (missing) Result panel 53 Mean corpuscular hemoglobin concentration (MCHC) determination 2025-08-13 02:01:07 [facility] 34.5 % (mis sing) Result panel 54 Red cell distribution width determination 2025-08-13 02:01:07 [facility] 13.8 % (mis sing) Result panel 55 Platelet count 2025-08-13 02:01:07 [facility] 204 X10^3/uL (missing) Result panel 56 Automated neutrophil % 2025-08-13 02:01:07 [facility] 7 7.4 % (missing) Result panel 57 Automated lymphocyte % 2025-08-13 02:01:07 [facility] 9 .5 % (missing) Result panel 58 Automated monocyte % 2025-08-13 02:01:07 [facility] 12. 1 % (missing) Result panel 59 Automated eosinophil % 2025-08-13 02:01:07 [facility] 0 .1 % (missing) Result panel 60 Automated basophil % 2025-08-13 02:01:07 [facility] 0.9 % (missing) Result panel 61 Absolute neutrophil count 2025-08-13 02:01:07 [facility] l 5100 /uL (missing) Result panel 62 Absolute lymphocyte count 2025-08-13 02:01:07 [facility] l 600 /uL (missing) Result panel 63 Automated blood monocyte count 2025-08-13 02:01:07 [facility] 800 /uL (missing) Result panel 64 Automated eosinophil count 2025-08-13 [facility] Result panel 65 Automated basophil count 2025-08-13 02:01:07 [facility] 100 /uL (missing) Result panel 66 Serum prothrombin time 2025-08-13 02:01:07 [facility] 1 2.4 SECONDS (missing) Result panel 67 INR in Platelet poor plasma by Coagulation assay 2025-08-13 02:01:07 [facility] 1.1 (missing) (miss ing) Result panel 68 Ethanol [Mass/volume] in Serum or Plasma 2025-08-13 02:01:07 [facility] 218 mg/dL (m issing) Result panel 69 X-ray report 2025-08-13 02:11 [facility] (missing) (mis sing) (missing) Result panel 70 Eosinophils Absolute Auto 2025-08-13 02:13 [facility] 0 /ul (missing) Eosinophils Percent Auto 2025-08-13 02:13 [facility] 0. 1 % (missing) Basophils Percent Auto 2025-08-13 02:[address] [place] [address] 0.9 % (missing) Basophils Absolute Auto 2025-08-13 02:13 [facility] 100 /ul (missing) Hemoglobin 2025-08-13 02:13 [facility] 11.3 g/dl (missing) Monocytes Percent Auto 2025-08-13 02:13 [facility] 12.1 % (missing) Red Cell Distribution Width 2025-08-13 02:13 [facility] 13.8 % (missing) Platelet Count 2025-08-13 02:13 [facility] 204 x1 0 3/ul (missing) Red Blood Cell Count 2025-08-13 02:13 [facility] 3.42 x10 6/ul (missing) Hematocrit 2025-08-13 02:13 [facility] 32.8 % (missing) Mean Corpuscular Hemoglobin 2025-08-13 02:[address] [place] [address] 33.2 pg (missing) Mean Corpuscular HGB Conc 2025-08-13 02:13 [facility] 3 4.5 % (missing) Neutrophils Absolute Auto 2025-08-13 02:13 [facility] 5 100 /ul (missing) White Blood Cell Count 2025-08-13 02:[address] [place] [address] 6.6 x10 3/ul (missing) Lymphocytes Absolute Auto 2025-08-13 02:13 [facility] 6 00 /ul (missing) Neutrophils Percent Auto 2025-08-13 02:[address] [place] [address] 77 .4 % (missing) Monocytes Absolute Auto 2025-08-13 02:[address] [place] [address] 800 /ul (missing) Lymphocytes Percent Auto 2025-08-13 02:[address] [place] [address] 9. 5 % (missing) Mean Corpuscular Volume 2025-08-13 02:13 [facility] 96. 2 fl (missing) Result panel 71 INR 2025-08-13 02:15 [facility] 1.1 (missin g) (missing) Prothrombin Time 2025-08-13 02:15 [facility] 12.4 seconds (missing) Result panel 72 Ethanol (ETOH) 2025-08-13 03:23 [facility] 218 mg /dl ETHANOL MG/DL FLUSHING, SLOWING OF REFLEXES, IMPAIRED VISION 50-100 CENTRAL NERVOUS SYSTEM DEPRESSION >100 FATALITIES REPORTED >400 Result panel 73 WBC,URINE 2025-09-07 14:[address] [place] [address] 0-3 /hpf (missing) RBC,URINE 2025-09-07 :[address] [place] [address] 0-5 /hpf (missing) UROBILINOGEN,URI NE 2025-09-07 :[address] [place] [address] 0.2 (NORMAL) e.u./dl (missing) SPECIFIC GRAVITY,URINE 2025-09-07 :[address] [place] [address] 1.005 (missing ) (missing) PH,URINE 2025-09-07 :[address] [place] [address] 8.0 ph (missing) CLARITY,URINE 2025-09-[address] [place] [address] CLEAR (missing ) (missing) CUL, URINE 2025-09-07 :[address] [place] [address] CXPCULTURE IN PROGRESS. RESULTS TO FOLLOW. (missing ) (missing) SQUAMOUS EPITHELIAL CELL,UR 2025-09-07 :[address] [place] [address] FEW Squamous (missing ) (missing) UR CULTURE IF IND 2025-09-07 :[address] [place] [address] INDICATED (missing ) (missing) URINE MICROSCOPIC INDICATED? 2025-09-07 :[address] [place] [address] INDICATED (missing ) (missing) NITRITE,URINE 2025-09-07 :[address] [place] [address] NEGATIVE (missing ) (missing) BILIRUBIN,URINE 2025-09-07 :[address] [place] [address] NEGATIVE (missing ) Bilirubin can be influenced by color interference. Please correlate positive results with clinical presentation GLUCOSE, URINE (UA) 2025-09-[address] [place] [address] NEGATIVE mg/dl (missing) KETONES,URINE (UA) 2025-09-[address] [place] [address] NEGATIVE mg/dl (missing) PROTEIN,URINE 2025-09-[address] [place] [address] NEGATIVE mg/dl (missing) CUL, URINE 2025-09-[address] [place] [address] [id number] COLONIES/ML Polymicrobial growth including (missing ) (missing) CUL, URINE 2025-09-07 14:45 [facility] [id number] n. (missing ) (missing) CUL, URINE 2025-09-07 14:45 [facility] [id number] pathogens. This is suggestive of skin or other (missing ) (missing) BACTERIA,URINE 2025-09-07 14:45 [facility] Rare /hpf (missing) OCCULT BLOOD,URINE 2025-09-07 14:45 [facility] SMALL (missing ) (missing) LEUKOCYTE ESTERASE, URINE 2025-09-07 14:45 [facility] TRACE (missing ) (missing) COLOR,URINE 2025-09-07 14:45 [facility] YELLOW (missing ) URINE CLEAN CATCH Social History date description facility 2025-08-12 00:00 Ex-smoker (finding) [facility] 2025-08-23 00:00 Ex-smoker (finding) [facility] 2025-09-01 00:00 Ex-smoker (finding) [facility] Vital Signs date measurement value units 2025-08-12 00:00 BMI 22.1 kg/m2 2025-08-12 00:00 height_metric 158.75 cm 2025-08-12 00:00 weight_metric 55.79 kg 2025-08-13 00:00 BP_diastolic 66 mmHg 2025-08-13 00:00 BP_systolic 121 mmHg 2025-08-13 00:00 heart_rate 89 /min 2025-08-13 00:00 o2_saturation 92 % 2025-08-13 00:00 respiration_rate 15 /min 2025-08-13 00:00 temperature_standard 97.3 F 2025-08-23 00:00 BMI 21.6 kg/m2 2025-08-23 00:00 heart_rate 106 /min 2025-08-23 00:00 height_metric 158.75 cm 2025-08-23 00:00 o2_saturation 100 % 2025-08-23 00:00 weight_metric 54.43 kg 2025-09-01 00:00 BMI 21.6 kg/m2 2025-09-01 00:00 heart_rate 75 /min 2025-09-01 00:00 height_metric 158.75 cm 2025-09-01 00:00 o2_saturation 98 % 2025-09-01 00:00 weight_metric 54.43 kg
[2025-09-09 14:29] LABS: HCT - HEMATOCRIT 35.6 % (37.0-47.0); HGB - HEMOGLOBIN 12.6 g/dL (12.0-16.0); MEAN PLATELET VOLUME 9.5 fL (7.9-10.8); PLT - PLATELET COUNT 225 10^3/uL (130-450); RED CELL DISTRIBUTION WIDTH 11.9 % (12.0-15.0)
[2025-09-09 14:59] LABS: ALT ALANINE AMINOTRANSFERASE 22.0 IU/L (10-60); AST ASPARTATE AMINOTRANSFERASE 36.0 IU/L (10-42); BUN - BLOOD UREA NITROGEN 14.0 mg/dL (6-20); CARBON DIOXIDE - CO2 37.0 mmol/L (21-32); CREATININE 0.9 mg/dL (0.6-1.3); GFR - MDRD 62.0 (>89)
[2025-09-09 15:01] LABS: ABNORMAL LYMPHS % (MANUAL) 0 %; BAND NEUTROPHILS % (MANUAL) 0 %; BASOPHILS # (MANUAL) 0.0 10^3/uL (0-0.1)
--- NOTE | 2025-09-09 15:04 | ED Physician Documentation ---
History of Present Illness Stated complaint Stated Complaint: WEAKNESS Chief complaint Chief Complaint: UTI Additonal information Additional information: 70-year-old female comes into the emergency department for increased worsening weakness. Patient was brought in via EMS she lives at home alone her daughter is at bedside with additional information. She fell about 3 weeks ago and had to have her left elbow surgically repaired at [facility] patient denies hitting her head but daughter says that the fall was unwitnessed and where they found her was all the way across the room from the chair where she was emergently standing. She has been having a gradual decline in strength over the last 3 weeks. Patient was seen in the emergency department 2 days ago was started on antibiotics for urinary tract infection ciprofloxacin has been taking as prescribed. Meds/Allgy Home Medications Ambulatory Orders Medication Instructions Recorded Confirmed lorazepam 0.5 mg tablet 0.5 mg PO DAILY PRN Anxiety 11/23/15 09/09/25 triamterene 37.5 1 tab PO DAILY 11/23/1508/2125 mg-hydrochlorothiazide 25 mg capsule albuterol sulfate 90 mcg/actuation 2 puff inhalation Q ID PRN 12/13/24 09/09/25 aerosol inhaler (Ventolin HFA) shortness of breath or wheezing #6.7 grams calcipotriene 0.005 1 applic topical Q2D PRN amber h 12/13/24 09/09/25 %-betamethasone 0.064 % topical foam (Enstilar) inhalat.spacing dev,large mask #1 ea 12/13/24 09/09/25 (BreatheRite Spacer and Mask, Adult) mupirocin 2 % topical ointment 1 applic topical TID #1 5 grams 12/13/24 09/09/25 (Centany) furosemide 20 mg tablet 20 mg PO DAILY PRN edema 09/09/25 sulfamethoxazole 800 1 tab PO BID #14 tabs 09/09/25 mg-trimethoprim 160 mg tablet (Bactrim DS) ciprofloxacin HCl 500 mg tablet 500 mg PO BID #10 tabs 09/08/25 09/09/25 Allergies Allergies Allergy/AdvReac Type Severity Reaction Status Date / Time Sulfa (Sulfonamide AdvReac Hallucinati Verified 09/09/25 15:14 Antibiotics) ons PFSH Active Problems All Active Problems (Updated 09/09/25 @ 15:30 by Stella Kellogg DNP) Acute hypokalemia (Acute) Acute hyponatremia (Acute) UTI (urinary tract infection) (Acute) Blister (Acute) History of MRSA infection (Acute) Nasal ulcer (Acute) Cough (Acute) Essential hypertension (Acute) CAP (community acquired pneumonia) (Acute) Surgical History Surgical History (Updated 09/07/25 @ 13:37 by Jian Eckert, RN) History of surgery on wrist Social History Social History (Updated 09/07/25 @ 13:37 by Jian Eckert, RN) If you are a former smoker, when did you quit? (Date/Year): 2017 Number of Years Smoked: 40 How many cigarettes a day do you smoke? (20 cigarettes=1 Pk): 5 Do you dip or chew tobacco?: No Patient requests smoking cessation consult: No Initiate information on smoking cessation: No Living arrangement: At home Do you feel safe in your home environment?: Yes History of physical, verbal, emotional, or financial abuse?: No Frequency: Daily POLST Patient has POLST: No Exam Exam Vital Signs: Vital Signs x48h Temp Pulse Resp BP Pulse Ox 09/09/25 13:52 36.5 C 86 16 107/69 96 Constitutional normal general appearance, no apparent distress, average body habitus, no limitations and alert HENMT normocephalic and head/scalp atraumatic Eyes PERRL and EOMs intact bilaterally Neck/C-Spine visual inspection normal Lymph no lymphadenopathy noted Chest inspection of chest normal and palpation of chest normal Respiratory breath sounds equal bilaterally and normal respiratory effort Cardiovascular normal heart rate noted and regular rhythm noted Gastrointestinal abdomen normal to inspection, abdomen soft to palpation and nontender to palpa tion Genitourinary no CVA tenderness Extremities normal to inspection, normal to palpation, no tenderness, full ROM and no joint enlargement 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 intact, no movement abnormality noted, no focal motor deficit noted, gait normal, speech normal, coordination normal and GCS 15 Skin skin color normal Results Vitals Vitals: Vital Signs - 24 hr 09/09/25 13:52 Temperature 36.5 C Temperature Source Temporal Artery Scan Pulse Rate 86 Respiratory Rate 16 Blood Pressure 107/69 O2 Saturation 96 O2 Source Room air Pain Intensity 5 Oxygen O2 Source Room air Labs Labs: Laboratory Tests 09/09/25 14:19 WBC 8.8 RBC 3.94 L Hgb 12.6 Hct 35.6 L MCV 90.4 MCH 32.0 H MCHC 35.4 RDW 11.9 L Plt Count 225 MPV 9.5 Neut # (Auto) Not Reportable Lymph # (Auto) Not Reportable [place] # (Auto) Not Reportable Eos # (Auto) Not Reportable Baso # (Auto) Not Reportable Absolute Nucleated RBC Not Reportable Total Counted 100 Band Neuts % (Manual) 0 Abnorm Lymph % (Manual) 0 Nucleated RBC % Not Reportable Neutrophils # (Manual) 6.3 Lymphocytes # (Manual) 1.1 L Monocytes # (Manual) 1.3 H Eosinophils # (Manual) 0.1 Basophils # (Manual) 0.0 Differential Comment MANUAL DIFFERENTIAL WBC Morphology NORMAL RAMIREZ Platelet Estimate NORMAL (130-450,000) Platelet Morphology NORMAL RAMIREZ RBC Morph Micro Appear NORMAL RAMIREZ Sodium 113 L* Potassium 2.6 L Chloride 64 L* Carbon Dioxide 37 H Anion Gap 12.0 BUN 14 Creatinine 0.9 Estimated GFR (MDRD) 62 L Glucose 108 H Calcium 12.2 H* Magnesium 1.2 L Total Bilirubin 1.2 H AST 36 ALT 22 Alkaline Phosphatase 79 Total Protein 7.2 Albumin 4.1 Globulin 3.1 Albumin/Globulin Ratio 1.3 Lipase 28 Rads (name of study) head CT WO: Relevant Findings:: Final report received and EMP independent interpretation of test Interpretation: IMPRESSION: No acute intracranial pathology. No acute skull fracture. PD Medical Decision Making ED course ED course: 70-year-old female who presented via EMS for progressive weakness over the past three weeks. She lives alone, and her daughter reports that the patient had an unwitnessed fall approximately three weeks ago, resulting in a left elbow fracture requiring surgical repair at [facility]. The patient denies head trauma, but the circumstances of the fall raise concern for possible unwitnessed injury. She was seen in the ED two days prior for a urinary tract infection and has been compliant with ciprofloxacin. On arrival, vital signs were stable, and physical exam was notable for no acute distress and a normal neurological exam with GCS 15. Laboratory evaluation revealed severe hyponatremia (Na 113), hypokalemia (K 2.6), hypochloremia (Cl 64), hypomagnesemia (Mg 1.2), mild hyperglycemia (Glucose 108), and elevated calcium (Ca 12.2), with otherwise u nremarkable CBC and liver function tests. Head CT showed no acute intracranial pathology. The patients acute electrolyte abnormalities are likely contributing to her weakness and fall risk. She was evaluated for underlying causes, including infection, medication effects, and recent hospitalization. Given her electrolyte derangements and recent functional decline, she was determined to require inpatient management for correction of hyponatremia, hypokalemia, and hypomagnesemia, as well as monitoring for potential complications from her prior fall and ongoing UTI. The patients home medications, including diuretics and antibiotics, were reviewed, and she will continue appropriate therapy with monitoring. Patient was given 40 mEq of potassium and 1 g IV magnesium for electrolyte replacement as well as 1 L of normal saline.. Discharge Plan Discharge Patient Disposition: [facility] DC/Xfer Condition: Fair Clinical Impression: Acute hyponatremia, Acute hypokalemia Prescriptions: No Action triamterene-hydrochlorothiazid 1 EACH capsule 1 tab PO DAILY lorazepam 0.5 MG tablet 0.5 mg PO DAILY PRN (Reason: Anxiety) furosemide 20 mg tablet 20 mg PO DAILY PRN (Reason: edema) Patient Comments: TAKE 1 TABLET BY MOUTH ONCE DAILY NEEDED FOR LEG OR FOOT SWELLING sulfamethoxazole-trimethoprim [Bactrim DS] 800-160 mg tablet 1 tab PO BID Qty: 14 0RF ciprofloxacin HCl 500 mg tablet 500 mg PO BID Qty: 10 0RF Enstilar 0.005-0.064 % foam 1 applic topical Q2D PRN (Reason: rash) Patient Comments: APPLY TO PSORIASIS AREAS ON ENTIRE BODY EVERY OTHER DAY NEEDED... (REFER TO PRESCRIPTION NOTES). albuterol sulfate [Ventolin HFA] 90 mcg/actuation HFA aerosol inhaler 2 puff inhalation QID PRN (Reason: shortness of breath or wheezing) Qty: 6.7 2RF (DME) BreatheRite Spacer-Mask,Adult Spacer See Rx Instructions .MEDSUPPLY Qty: 1 0RF Rx Instructions: As directed mupirocin [Centany] 2 % ointment 1 applic topical TID Qty: 15 1RF Print Language: Kosovan
[2025-09-09 15:26] LABS: EOSINOPHILS # (MANUAL) 0.1 10^3/uL (0-0.7); LYMPHOCYTES # (MANUAL) 1.1 10^3/uL (1.5-3.5); LYMPHOCYTES % (MANUAL) 12 %; MONOCYTES # (MANUAL) 1.3 10^3/uL (0.0-1.0); NEUTROPHILS # (MANUAL) 6.3 10^3/uL (1.5-6.6)
[2025-09-09 15:28] LABS: PLATELET ESTIMATE, MANUAL NORMAL (130-450,000) (NORMAL)
[2025-09-09 15:30] LABS: RBC MORPHOLOGY (MULTIPLE) NORMAL APP (NORMAL)
[2025-09-09 15:31] LABS: PLATELET MORPHOLOGY NORMAL APP (NORMAL)
[2025-09-09 15:32] LABS: WBC MORPHOLOGY (MULTIPLE) NORMAL APP (NORMAL)
[2025-09-09] MEDS ORDERED: MAGNESIUM SULFATE 1 GM/2 ML VIAL IVP STA (15:35)
--- NOTE | 2025-09-09 15:38 | CT Report ---
PROCEDURE: CT Head WO INDICATIONS: GLF TECHNIQUE: CT of the head was performed, without intravenous contrast. Reformats: Coronal and sagittal. For radiation dose reduction, the following was used: automated exposure control, adjustment of mA and/or kV according to patient size. COMPARISON: None. FINDINGS: Image quality: Diagnostic. CSF spaces: Basal cisterns are patent. No extra-axial fluid collections. Ventricles are normal in size and shape. Brain: No midline shift. No intracranial mass effect or hemorrhage. Agrawal- white matter interface is normal. Age appropriate volume loss and periventricular white matter hypoattenuation, likely chronic ischemic change. Skull and face: Calvarium and visualized facial bones are intact, without suspicious lesions. Sinuses: Visualized sinuses and mastoids are clear. IMPRESSION: No acute intracranial pathology. No acute skull fracture. Reviewed by: Patrice Colbert MD on 09/09/2025 3:35 PM PST Approved by: Patrice Colbert MD on 09/09/2025 3:35 PM [facility] Station ID: [id number]
[2025-09-09] MEDS: MAGNESIUM SULFATE 1 GM in SODIUM CHLORIDE 0.9% 50 ML IV STA (15:56)
[2025-09-09] MEDS: SODIUM CHLORIDE 0.9% 1,000 ML IV STA (15:56)
[2025-09-09] MEDS: POTASSIUM CHLORIDE 20 MEQ/15 ML UDC PO STA (15:56)
[2025-09-09] MEDS: POTASSIUM CHLORIDE 20 MEQ TABLET PO STA (16:08)
--- NOTE | 2025-09-09 16:13 | HISTORY & PHYSICAL EXAMINATION ---
Chief Complaint Chief Complaint Chief Complaint: Weakness History of Present Illness Admitted From Admitted From:: Home History Obtained From Records Reviewed: EMR History obtained from: Patient, patient's daughter at bedside Exam Limitations: None History of Present Illness HPI Comment/Other: Patient is a 71-year-old female with a history of chronic alcohol abuse, hypertension who presents due to increased weakness and lethargy at home. History is taken by patient, as well as daughter at bedside. About 3 weeks ago, she was sitting on a rocking chair, and she fell forward. She dislocated her left elbow, and they went to [facility]. Here, it was reduced, and a cast was placed. They return to the emergency room on 09/07 for urinary frequency and dysuria for the last week. She was discharged home with ciprofloxacin. Her daughter brought her back in today because she continues to be weak at home. About 3 months ago, she was admitted to the hospital for pneumonia. Since then, she has had a decreased appetite, and has been barely eating meals. She lives with her grandson who helps with cooking. She has a history of chronic alcohol use. She drinks about 5 apple ciders daily, which are about 8% alcohol. She takes Ativan every morning for anxiety, but may be helping her get through acute withdrawal in the mornings. She has never been hospitalized for alcohol withdrawal before nor had alcohol-related seizures. When reviewing previous records, an abdominal ultrasound completed 10/12 does note cirrhotic changes in the liver. This was followed by an abdominal MRI done 03/13 which shows marked hepatic steatosis. She has bilateral feet swelling, likely a result of venous stasis. For this, she has been taking Lasix every day. She is also on hydrochlorothiazide. At this time, she denies any dizziness, lightheadedness. She does state that she feels weaker than usual. Past medical history includes hypertension, anxiety, chronic alcohol use. Medications include triamterenehydrochlorothiazide, Lasix, albuterol inhaler which was prescribed to her after her episode of pneumonia. She has no known drug allergies, but does get hallucinations when she take sulfa antibiotics. Previous surgical history includes a left wrist surgery. Her alcohol use history is as above. She was a former smoker, with about a 40- year pack history, and quit about 10 years ago. She denies any recreational drug use. She ambulates without any assistive devices. 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 Advance care planning was discussedpatient would like to think little further about her CODE STATUS. She has not filled out a POLST before. Her DPOA or next contact will be her daughter, [phone]. She is admitted as inpatient as more than two midnights are expected. Meds/Allgy Home Medications Ambulatory Orders Medication Instructions Recorded Confirmed lorazepam 0.5 mg tablet 0.5 mg PO DAILY PRN Anxiety 11/23/15 09/09/25 triamterene 37.5 1 tab PO DAILY 11/23/1508/21 mg-hydrochlorothiazide 25 mg capsule albuterol sulfate 90 mcg/actuation 2 puff inhalation Q ID PRN 12/13/24 09/09/25 aerosol inhaler (Ventolin HFA) shortness of breath or wheezing #6.7 grams calcipotriene 0.005 1 applic topical Q2D PRN amber h 12/13/24 09/09/25 %-betamethasone 0.064 % topical foam (Enstilar) inhalat.spacing dev,large mask #1 ea 12/13/24 09/09/25 (BreatheRite Spacer and Mask, Adult) mupirocin 2 % topical ointment 1 applic topical TID #1 5 grams 12/13/24 09/09/25 (Centany) furosemide 20 mg tablet 20 mg PO DAILY PRN edema 09/09/25 sulfamethoxazole 800 1 tab PO BID #14 tabs 09/09/25 mg-trimethoprim 160 mg tablet (Bactrim DS) ciprofloxacin HCl 500 mg tablet 500 mg PO BID #10 tabs 09/08/25 09/09/25 Allergies Allergies Allergy/AdvReac Type Severity Reaction Status Date / Time Sulfa (Sulfonamide AdvReac Hallucinati Verified 09/09/25 15:14 Antibiotics) ons PFSH Active Problems All Active Problems (Updated 09/09/25 @ 17:51 by Coby Jha MD) Hypercalcemia (Chronic) Chronic alcohol use (Acute) Hypomagnesemia (Acute) Acute hypokalemia (Acute) Acute hyponatremia (Acute) UTI (urinary tract infection) (Acute) Blister (Acute) History of MRSA infection (Acute) Nasal ulcer (Acute) Cough (Acute) Essential hypertension (Acute) CAP (community acquired pneumonia) (Acute) Medical History Medical History (Updated 09/09/25 @ 17:51 by Coby Jha MD) Psoriasis Surgical History Surgical History History of surgery on wrist Social History Social History Smoking Status: Former smoker If you are a former smoker, when did you quit? (Date/Year): 2017 Number of Years Smoked: 40 How many cigarettes a day do you smoke? (20 cigarettes=1 Pk): 5 Do you dip or chew tobacco?: No Do you vape?: No Patient requests smoking cessation consult: No Initiate information on smoking cessation: No Living arrangement: At home Level: Independent Do you feel safe in your home environment?: Yes History of physical, verbal, emotional, or financial abuse?: No Frequency: Daily Substance Use: denies use POLST Patient has POLST: No POLST on file?: No POLST CPR Status: Attempt Resuscitation (CPR) Level of Medical Intervention: Full Treatment Review of Systems Constitutional Reports: Fatigue, Malaise, Weakness and Poor appetite; Denies: Fever or Chills Eyes Denies: Pain, Irritation, Blurry vision, Vision loss or Diplopia Ears, nose, mouth, and throat Denies: Ear pain, Hearing loss, Tinnitus, Nose bleeds or Nasal discharge Cardiovascular Reports: edema; Denies: Irregular heart rate, chest pain, palpitations, Syncope or shortness of breath with exertion Respiratory Reports: Cough; Denies: Shortness of breath, Sputum production or Wheezing Gastrointestinal Reports: Constipation; Denies: Abdominal pain, Abdominal distention, Nausea, Vomiting, Heartburn or Diarrhea Genitourinary Reports: Painful urination; Denies: Urinary frequency or Urinary urgency Musculoskeletal Reports: Extremity swelling; Denies: Back pain, Extremity pain or Joint pain Integumentary/Breast Denies: Rash, Itching, Dryness, Redness or Skin pain Neurological Reports: General weakness; Denies: Headache, Weakness in extremities, Numbness in extremities, Abnormal gait or Dizziness Psychiatric Reports: Anxiety; Denies: Depression or Mood swings Endocrine Reports: Fatigue; Denies: Excessive urination or Excessive thirst Hematologic/Lymphatic Denies: Anemia, Easy bruising or Easy bleeding Allergic/Immunologic Denies: Hives, Tongue swelling, Facial swelling or Wheezing Prior Level of Functionality: Independent of ADLs. Exam Exam Vital Signs: Vital Signs x48h Temp Pulse Resp BP Pulse Ox 09/09/25 16:52 55 L 18 127/71 97 09/09/25 13:52 97.7 F 86 16 107/69 96 Constitutional abnormal general appearance (disheveled) and (frail appearing), no apparent distress, abnormal body habitus (cachectic), (thin) and (underweight), no limitations and alert HENMT normocephalic, head/scalp atraumatic and hearing grossly normal bilaterally Eyes PERRL and EOMs intact bilaterally some scleral icterus noted Neck/C-Spine visual inspection normal and trachea midline Chest inspection of chest normal Respiratory breath sounds equal bilaterally, normal respiratory effort, clear to auscultation bilaterally, no wheezes, no rales and no retractions Cardiovascular normal heart rate noted, regular rhythm noted, no gallop, no rub and no murmur Gastrointestinal abdomen normal to inspection, abdomen soft to palpation, nontender to palpation and normoactive bowel sounds Genitourinary no CVA tenderness and bladder normal to palpation Extremities Left arm in hinge cast with extensive ecchymoses noted across elbow. Bilateral lower extremity with hyperpigmentation noted, some tenderness to touch. Mild edema of just feet. Neurology no movement abnormality noted and no focal motor deficit noted Psychiatry mental status grossly normal, oriented x3, thought process normal, cooperative and affect normal Skin skin color normal, no rash and no lesions Conclusion/Plan Problem List (1) Acute hyponatremia: Plan: Severe, symptomatic hyponatremia. Likely hypovolemic hyponatremia, due to decreased p.o. intake and overuse of diuretics, patient is on both Lasix and hydrochlorothiazide. She also drinks alcohol every day, and likely has decreased solute intake. TSH, a.m. cortisol ordered to rule out secondary causes of hyponatremia. Urine sodium, serum osmolality, urine osmolality also ordered. Attempt to correct sodium by 4-6 mEQ in next 1-2 hours (117-119), but no more than 10 mEQ in next 24 hours (123 by tomorrow at 3 PM). Continue BMPs every 2 hours until midnight. After this, continue BMPs every 4 hours. Received 1L of 0.9 NS. Continue 0.9 NS at 75 cc/hour. (2) Acute hypokalemia: Plan: Due to decreased P.O. intake. Repleted with oral and IV potassium. Continue to trend. (3) Hypomagnesemia: Plan: Due to decreased P.O. intake. Repleted, continue to trend daily. (4) Hypercalcemia: Plan: Due to decreased P.O. intake. Likely due to profound dehydration. Continue IV fluid resuscitation as above. (5) Chronic alcohol use: Plan: CIWA protocol in place, with Ativan as needed. Continue multivitamin, thiamine, and folic acid supplementation. (6) Hypertension: Plan: Hold Lasix and hydrochlorothiazide at this time. Likely should be discharged without both these medications. Qualifiers: Hypertension type: unspecified Qualified Code(s): I10 - Essential (primary) hypertension Lab Results Lab results reviewed: Yes 09/09/25 14:19 09/09/25 14:19 Diagnostic Imaging Results Diagnostic Imaging Results: positive Final report reviewed Core Measures Anticipated LOS I expect patient to be DC'd or transferred within 96 hours.: Yes Issues Hospital Issues and Management Plan: None anticipated. DVT/VTE - Prophylaxis VTE/DVT Device ordered at admit?: Yes VTE/DVT Prophylaxis med ordered at admit?: Yes Stroke - Rehab Assessment Rehab services assessment to be ordered?: No AMI - Statin at Admit Aspirin Prescribed on Admit: No
[2025-09-09] MEDS ORDERED: ACETAMINOPHEN 325 MG TABLET PO PRN (16:28)
[2025-09-09] MEDS ORDERED: ONDANSETRON 4 MG/2 ML VIAL IVP PRN (16:28)
[2025-09-09] MEDS ORDERED: ONDANSETRON ODT 4 MG TABLET TL PRN (16:28)
[2025-09-09] MEDS ORDERED: SODIUM CHLORIDE FLUSH 0.9% 10 ML SYRINGE IVP PRN (16:28)
--- OUTSIDE RECORDS SUMMARY | 2025-09-09 16:31 | EXTERNAL MEDICAL SUMMARY RPT | Continuity of Care Document ---
Author Organization [facility] Address [address] [place] [id number] Phone Care Team Providers Care Interventional Radiology Technologist Name Role Phone Unavailable Unavailable [email or web address] Jeffery Monteiro Unavailable Unavailable Allergies and Intolerances date description facility reaction severity 2025-08-12 22:56:49 [facility] (no reactio n) (no severity) 2025-08-23 13:15:53 [facility] (no reactio n) (no severity) 2025-09-01 11:25:42 [facility] (no reactio n) (no severity) Medications date description facility 2025-08-23 00:00 Lorazepam [facility] 2025-08-23 [facility] 2025-08-13 00:00 Hydrocodone-Acetaminophen [facility] Problems date description facility 2025-08-13 00:00 Alcoholic intoxication [facility] 2025-08-13 00:00 Dislocation of left elbow [facility] 2025-08-13 03:48 Unspecified dislocat ion of left ulnohumeral joint, initial [facility] 2025-08-13 03:50 Unspecified dislocat ion of left ulnohumeral joint, initial [facility] 2025-08-13 04:19 Unspecified dislocat ion of left ulnohumeral joint, initial [facility] 2025-08-13 04:36 Unspecified dislocat ion of left ulnohumeral joint, initial [facility] 2025-08-18 13:22 Unspecified injury o f left shoulder and upper arm, initial encounter [facility] 2025-08-29 07:36 [facility] 2025-08-29 07:36 Unspecified dislocat ion of left ulnohumeral joint, initial [facility] 2025-09-07 16:10 Acute cystitis without hematuri a [facility] 2025-09-08 07:07 Acute cystitis without hematuri a [facility] Procedures date description facility 2025-08-12 00:00 XR forearm left, 2 [facility] 2025-08-13 00:00 XR forearm left, 2 [facility] 2025-08-12 00:00 X-ray of left humerus [facility] 2025-08-23 00:00 XR fluoro, less than 60 minutes [facility] Results/Labs test date facility value unit notes Result panel 1 X-ray report 2025-08-13 00:26 [facility] (missing) (mis sing) (missing) Result panel 2 X-ray report 2025-08-13 00:27 [facility] (missing) (mis sing) (missing) Result panel 3 White blood cell count 2025-08-13 01:01:08 [facility] 6 .6 X10^3/uL (missing) Result panel 4 Automated neutrophil % 2025-08-13 01:01:08 [facility] 7 7.4 % (missing) Result panel 5 Automated lymphocyte % 2025-08-13 01:01:08 [facility] 9 .5 % (missing) Result panel 6 Automated monocyte % 2025-08-13 01:01:08 [facility] 12. 1 % (missing) Result panel 7 Automated eosinophil % 2025-08-13 01:01:08 [facility] 0 .1 % (missing) Result panel 8 Automated basophil % 2025-08-13 01:01:08 [facility] 0.9 % (missing) Result panel 9 Absolute neutrophil count 2025-08-13 01:01:08 [facility] l 5100 /uL (missing) Result panel 10 Absolute lymphocyte count 2025-08-13 01:01:08 [facility] l 600 /uL (missing) Result panel 11 Automated blood monocyte count 2025-08-13 01:01:08 [facility] 800 /uL (missing) Result panel 12 Automated eosinophil count 2025-08-13 01:01:08 [facility] al 0 /uL (missing) Result panel 13 Automated basophil count 2025-08-13 01:01:08 [facility] 100 /uL (missing) Result panel 14 Red blood cell count 2025-08-13 01:01:08 [facility] 3.4 2 X10^6/uL (missing) Result panel 15 Serum prothrombin time 2025-08-13 01:01:08 [facility] 1 2.4 SECONDS (missing) Result panel 16 INR in Platelet poor plasma by Coagulation assay 2025-08-13 01:01:08 [facility] 1.1 (missing) (miss ing) Result panel 17 Ethanol [Mass/volume] in Serum or Plasma 2025-08-13 01:01:08 [facility] 218 mg/dL (m issing) Result panel 18 Hemoglobin 2025-08-13 01:01:08 [facility] 11.3 g/d L (missing) Result panel 19 Hematocrit 2025-08-13 01:01:08 [facility] 32.8 % (missing) Result panel 20 White blood cell count 2025-08-13 01:01:08 [facility] 6 .6 X10^3/uL (missing) Result panel 21 Red blood cell count 2025-08-13 01:01:08 [facility] 3.4 2 X10^6/uL (missing) Result panel 22 MCV (mean corpuscular volume ) determination 2025-08-13 01:01:08 [facility] 96.2 fL (mis sing) Result panel 23 Hemoglobin 2025-08-13 01:01:08 [facility] 11.3 g/d L (missing) Result panel 24 Hematocrit 2025-08-13 01:01:08 [facility] 32.8 % (missing) Result panel 25 MCV (mean corpuscular volume ) determination 2025-08-13 01:01:08 [facility] 96.2 fL (mis sing) Result panel 26 Mean corpuscular hemoglobin (MCH) determination 2025-08-13 01:01:08 [facility] 33.2 PG (missing) Result panel 27 Mean corpuscular hemoglobin concentration (MCHC) determination 2025-08-13 01:01:08 [facility] 34.5 % (mis sing) Result panel 28 Red cell distribution width determination 2025-08-13 01:01:08 [facility] 13.8 % (mis sing) Result panel 29 Platelet count 2025-08-13 01:01:08 [facility] 204 X10^3/uL (missing) Result panel 30 Automated neutrophil % 2025-08-13 01:01:08 [facility] 7 7.4 % (missing) Result panel 31 Automated lymphocyte % 2025-08-13 01:01:08 [facility] 9 .5 % (missing) Result panel 32 Automated monocyte % 2025-08-13 01:01:08 [facility] 12. 1 % (missing) Result panel 33 Mean corpuscular hemoglobin (MCH) determination 2025-08-13 01:01:08 [facility] 33.2 PG (missing) Result panel 34 Automated eosinophil % 2025-08-13 01:01:08 [facility] 0 .1 % (missing) Result panel 35 Automated basophil % 2025-08-13 01:01:08 [facility] 0.9 % (missing) Result panel 36 Absolute neutrophil count 2025-08-13 01:01:08 [facility] l 5100 /uL (missing) Result panel 37 Absolute lymphocyte count 2025-08-13 01:01:08 [facility] l 600 /uL (missing) Result panel 38 Automated blood monocyte count 2025-08-13 01:01:08 [facility] 800 /uL (missing) Result panel 39 Automated eosinophil count 2025-08-13 01:01:08 [facility] Result panel 40 Automated basophil count 2025-08-13 01:01:08 [facility] 100 /uL (missing) Result panel 41 Serum prothrombin time 2025-08-13 01:01:08 [facility] 1 2.4 SECONDS (missing) Result panel 42 INR in Platelet poor plasma by Coagulation assay 2025-08-13 01:01:08 [facility] 1.1 (missing) (miss ing) Result panel 43 Ethanol [Mass/volume] in Serum or Plasma 2025-08-13 01:01:08 [facility] 218 mg/dL (m issing) Result panel 44 Mean corpuscular hemoglobin concentration (MCHC) determination 2025-08-13 01:01:08 [facility] 34.5 % (mis sing) Result panel 45 Red cell distribution width determination 2025-08-13 01:01:08 [facility] 13.8 % (mis sing) Result panel 46 Platelet count 2025-08-13 01:01:08 [facility] 204 X10^3/uL (missing) Result panel 47 White blood cell count 2025-08-13 02:01:07 [facility] 6 .6 X10^3/uL (missing) Result panel 48 Red blood cell count 2025-08-13 02:01:07 [facility] 3.4 2 X10^6/uL (missing) Result panel 49 Hemoglobin 2025-08-13 02:01:07 [facility] 11.3 g/d L (missing) Result panel 50 Hematocrit 2025-08-13 02:01:07 [facility] 32.8 % (missing) Result panel 51 MCV (mean corpuscular volume ) determination 2025-08-13 02:01:07 [facility] 96.2 fL (mis sing) Result panel 52 Mean corpuscular hemoglobin (MCH) determination 2025-08-13 02:01:07 [facility] 33.2 PG (missing) Result panel 53 Mean corpuscular hemoglobin concentration (MCHC) determination 2025-08-13 02:01:07 [facility] 34.5 % (mis sing) Result panel 54 Red cell distribution width determination 2025-08-13 02:01:07 [facility] 13.8 % (mis sing) Result panel 55 Platelet count 2025-08-13 02:01:07 [facility] 204 X10^3/uL (missing) Result panel 56 Automated neutrophil % 2025-08-13 02:01:07 [facility] 7 7.4 % (missing) Result panel 57 Automated lymphocyte % 2025-08-13 02:01:07 [facility] 9 .5 % (missing) Result panel 58 Automated monocyte % 2025-08-13 02:01:07 [facility] 12. 1 % (missing) Result panel 59 Automated eosinophil % 2025-08-13 02:01:07 [facility] 0 .1 % (missing) Result panel 60 Automated basophil % 2025-08-13 02:01:07 [facility] 0.9 % (missing) Result panel 61 Absolute neutrophil count 2025-08-13 02:01:07 [facility] l 5100 /uL (missing) Result panel 62 Absolute lymphocyte count 2025-08-13 02:01:07 [facility] l 600 /uL (missing) Result panel 63 Automated blood monocyte count 2025-08-13 02:01:07 [facility] 800 /uL (missing) Result panel 64 Automated eosinophil count 2025-08-13 02:01:07 [facility] ([facility]) Result panel 65 Automated basophil count 2025-08-13 02:01:07 [facility] 100 /uL (missing) Result panel 66 Serum prothrombin time 2025-08-13 02:01:07 [facility] 1 2.4 SECONDS (missing) Result panel 67 INR in Platelet poor plasma by Coagulation assay 2025-08-13 02:01:07 [facility] 1.1 (missing) (miss ing) Result panel 68 Ethanol [Mass/volume] in Serum or Plasma 2025-08-13 02:01:07 [facility] 218 mg/dL (m issing) Result panel 69 X-ray report 2025-08-13 02:11 [facility] (missing) (mis sing) (missing) Result panel 70 Eosinophils Absolute Auto 2025-08-13 02:13 [facility] 0 /ul (missing) Eosinophils Percent Auto 2025-08-13 02:13 [facility] 0. 1 % (missing) Basophils Percent Auto 2025-08-13 02:[address] [place] [address] 0.9 % (missing) Basophils Absolute Auto 2025-08-13 02:13 [facility] 100 /ul (missing) Hemoglobin 2025-08-13 02:13 [facility] 11.3 g/dl (missing) Monocytes Percent Auto 2025-08-13 02:13 [facility] 12.1 % (missing) Red Cell Distribution Width 2025-08-13 02:13 [facility] 13.8 % (missing) Platelet Count 2025-08-13 02:13 [facility] 204 x1 0 3/ul (missing) Red Blood Cell Count 2025-08-13 02:13 [facility] 3.42 x10 6/ul (missing) Hematocrit 2025-08-13 02:13 [facility] 32.8 % (missing) Mean Corpuscular Hemoglobin 2025-08-13 02:[address] [place] [address] 33.2 pg (missing) Mean Corpuscular HGB Conc 2025-08-13 02:13 [facility] 3 4.5 % (missing) Neutrophils Absolute Auto 2025-08-13 02:13 [facility] 5 100 /ul (missing) White Blood Cell Count 2025-08-13 02:[address] [place] [address] 6.6 x10 3/ul (missing) Lymphocytes Absolute Auto 2025-08-13 02:13 [facility] 6 00 /ul (missing) Neutrophils Percent Auto 2025-08-13 02:[address] [place] [address] 77 .4 % (missing) Monocytes Absolute Auto 2025-08-13 02:[address] [place] [address] 800 /ul (missing) Lymphocytes Percent Auto 2025-08-13 02:[address] [place] [address] 9. 5 % (missing) Mean Corpuscular Volume 2025-08-13 02:13 [facility] 96. 2 fl (missing) Result panel 71 INR 2025-08-13 02:15 [facility] 1.1 (missin g) (missing) Prothrombin Time 2025-08-13 02:15 [facility] 12.4 seconds (missing) Result panel 72 Ethanol (ETOH) 2025-08-13 03:23 [facility] 218 mg /dl ETHANOL MG/DL FLUSHING, SLOWING OF REFLEXES, IMPAIRED VISION 50-100 CENTRAL NERVOUS SYSTEM DEPRESSION >100 FATALITIES REPORTED >400 Result panel 73 WBC,URINE 2025-09-07 14:[address] [place] [address] 0-3 /hpf (missing) RBC,URINE 2025-09-07 :[address] [place] [address] 0-5 /hpf (missing) UROBILINOGEN,URI NE 2025-09-07 :[address] [place] [address] 0.2 (NORMAL) e.u./dl (missing) SPECIFIC GRAVITY,URINE 2025-09-07 :[address] [place] [address] 1.005 (missing ) (missing) PH,URINE 2025-09-07 :[address] [place] [address] 8.0 ph (missing) CLARITY,URINE 2025-09-[address] [place] [address] CLEAR (missing ) (missing) CUL, URINE 2025-09-07 :[address] [place] [address] CXPCULTURE IN PROGRESS. RESULTS TO FOLLOW. (missing ) (missing) SQUAMOUS EPITHELIAL CELL,UR 2025-09-07 :[address] [place] [address] FEW Squamous (missing ) (missing) UR CULTURE IF IND 2025-09-07 :[address] [place] [address] INDICATED (missing ) (missing) URINE MICROSCOPIC INDICATED? 2025-09-07 :[address] [place] [address] INDICATED (missing ) (missing) NITRITE,URINE 2025-09-07 :[address] [place] [address] NEGATIVE (missing ) (missing) BILIRUBIN,URINE 2025-09-07 :[address] [place] [address] NEGATIVE (missing ) Bilirubin can be influenced by color interference. Please correlate positive results with clinical presentation GLUCOSE, URINE (UA) 2025-09-[address] [place] [address] NEGATIVE mg/dl (missing) KETONES,URINE (UA) 2025-09-[address] [place] [address] NEGATIVE mg/dl (missing) PROTEIN,URINE 2025-09-[address] [place] [address] NEGATIVE mg/dl (missing) CUL, URINE 2025-09-[address] [place] [address] [id number] COLONIES/ML Polymicrobial growth including (missing ) (missing) CUL, URINE 2025-09-07 14:[address] [place] [address] [id number] n. (missing ) (missing) CUL, URINE 2025-09-07 14:[address] [place] [address] [id number] pathogens. This is suggestive of skin or other (missing ) (missing) BACTERIA,URINE 2025-09-07 14:[address] [place] [address] Rare /hpf (missing) OCCULT BLOOD,URINE 2025-09-07 14:[address] [place] [address] SMALL (missing ) (missing) LEUKOCYTE ESTERASE, URINE 2025-09-07 14:[address] [place] [address] TRACE (missing ) (missing) COLOR,URINE 2025-09-07 :[address] [place] [address] YELLOW (missing ) URINE CLEAN CATCH Result panel 74 ABNORMAL LYMPHS % (MANUAL) 2025-09-09 14:[address] [place] [address] 0 % (missing) BAND NEUTROPHILS % (MANUAL) 2025-09-09 14:[address] [place] [address] 0 % (missing) NUCLEATED RED BLOOD CELLS AUTO 2025-09-09 14:[address] [place] [address] 0.0 /100wb c (missing) BASOPHILS # (MANUAL) 2025-09-09 14:[address] [place] [address] 0.0 10 3/ul (missing) BASOPHILS # (AUTO) 2025-09-09 14:[address] [place] [address] 0.0 10 3/ul (missing) NRBC ABSOLUTE COUNT (AUTO) 2025-09-09 14:[address] [place] [address] 0.00 x10 3/ul (missing) EOSINOPHILS # (MANUAL) 2025-09-09 14:[address] [place] [address] 0.1 10 3/ul (missing) EOSINOPHILS # (AUTO) 2025-09-09 14:[address] [place] [address] 0.2 10 3/ul (missing) CREATININE 2025-09-09 14:[address] [place] [address] 0.9 mg/dl As of April 2023 testing method has changed, this may include reference ranges. LYMPHOCYTES # (AUTO) 2025-09-09 14:[address] [place] [address] 1.0 10 3/ul (missing) LYMPHOCYTES # (MANUAL) 2025-09-[address] [place] [address] 1.1 10 3/ul (missing) BILIRUBIN,TOTAL 2025-09-09 14:[address] [place] [address] 1.2 mg/dl As of April 2023 testing method has changed, this may include reference ranges. MAGNESIUM 2025-09-09 14:[address] [place] [address] 1.2 mg/dl As of April 2023 testing method has changed, this may include reference ranges. ALBUMIN/GLOBULIN RATIO 2025-09-09 14:[address] [place] [address] 1.3 ([facility]) (missing) MONOCYTES # (MANUAL) 2025-09-[address] [place] [address] 1.3 10 3/ul (missing) MONOCYTES # (AUTO) 2025-09-[address] [place] [address] 1.7 10 3/ul (missing) TOTAL CELLS COUNTED 2025-09-[address] [place] [address] 100 ([facility]) (missing) GLUCOSE 2025-09-09 14:[address] [place] [address] 108 mg/dl As of April 2023 testing method has changed, this may include reference ranges. RED CELL DISTRIBUTION WIDTH 2025-09-09 14:[address] [place] [address] 11.9 % (missing) SODIUM 2025-09-[address] [place] [address] 113 mmol/l Critical result NA 113 mmol/L called to and read back by BENJAMIN Phelps RN/ED at 09-Sep-2025 14:57 by [employer] [facility]. ANION GAP 2025-09-[address] [place] [address] 12.0 ([facility]) (missing) CALCIUM 2025-09-09 14:[address] [place] [address] 12.2 mg/dl Critical result CA 12.2 mg/dL called to and read back by BENJAMIN Phelps RN/ED at 09-Sep-2025 14:57 by [employer]. As of April 2023 testing method has changed, this may include reference ranges. HGB - HEMOGLOBIN 2025-09-09 14:[address] [place] [address] 12.6 g/dl (missing) BUN - BLOOD UREA NITROGEN 2025-09-09 14:[address] [place] [address] 14 mg/dl As of April 2023 testing method has changed, this may include reference ranges. POTASSIUM 2025-09-09 14:[address] [place] [address] 2.6 mmol/l As of April 2023 testing method has changed, this may include reference ranges. ALT ALANINE AMINOTRANSFERASE 2025-09-09 14:[address] [place] [address] 22 iu/l As of April 2023 testing method has changed, this may include reference ranges. PLT - PLATELET COUNT 2025-09-09 14:[address] [place] [address] 225 10 3/ul (missing) LIPASE 2025-09-09 14:[address] [place] [address] 28 u/l As of April 2023 testing method has changed, this may include reference ranges. GLOBULIN 2025-09-09 14:19 [facility] 3.1 g/dl (missing) RED BLOOD COUNT 2025-09-09 14:19 [facility] 3.94 10 6/ul (missing) MEAN CORPUSCULAR HEMOGLOBIN 2025-09-09 14:19 [facility] 32.0 pg (missing) MEAN CORPUSCULAR HGB CONC 2025-09-09 14:19 [facility] 35.4 g/dl (missing) HCT - HEMATOCRIT 2025-09-09 14:[address] [place] [address] 35.6 % (missing) AST ASPARTATE AMINOTRANSFERASE 2025-09-09 14:19 [facility] 36 iu/l As of April 2023 testing method has changed, this may include reference ranges. CARBON DIOXIDE - CO2 2025-09-09 14:[address] [place] [address] 37 mmol/l As of April 2023 testing method has changed, this may include reference ranges. ALBUMIN 2025-09-09 14:19 [facility] 4.1 g/dl As of April 2023 testing method has changed, this may include reference ranges. NEUTROPHILS # (AUTO) 2025-09-09 14:19 [facility] 5.9 10 3/ul (missing) NEUTROPHILS # (MANUAL) 2025-09-09 14:19 [facility] 6.3 10 3/ul (missing) GFR - MDRD 2025-09-09 14:19 [facility] 62 ([facility]) The IDMS-traceable MDRD Study Equation has been validated extensively in and populations between the ages of 18 and 70 with impaired kidney function (eGFR < 60 mL/min/1.73m2) and has shown good performance for patients with all common causes of kidney disease. Although this equation has not been validated for patients older than 70, an MDRD-derived eGFR may still be a useful tool for providers caring for patients older than 70. References: http://www.nkde p.nih.gov/lab-e valuation/gfr/c reatinine-stand ardization, last updated December 2011. CHLORIDE 2025-09-09 14:[address] [place] [address] 64 mmol/l Critical result CL 64 mmol/L called to and read back by BENJAMIN Phelps RN/ED at 09-Sep-2025 14:57 by [email or web address]. As of April 2023 testing method has changed, this may include reference ranges. TOTAL PROTEIN 2025-09-09 14:19 [facility] 7.2 g/dl As of April 2023 testing method has changed, this may include reference ranges. ALKALINE PHOSPHATASE 2025-09-09 14:19 [facility] 79 iu/l As of April 2023 testing method has changed, this may include reference ranges. WHITE BLOOD COUNT 2025-09-09 14:19 [facility] 8.8 x10 3/ul (missing) MEAN PLATELET VOLUME 2025-09-09 14:19 [facility] 9.5 fl (missing) MEAN CORPUSCULAR VOLUME 2025-09-09 14:19 [facility] 90.4 fl (missing) DIFFERENTIAL COMMENT 2025-09-09 14:19 [facility] MANUAL DIFFERENTIAL (john ng) (missing) PLATELET ESTIMATE, MANUAL 2025-09-09 14:19 [facility] NORMAL ([phone],[id number]) (john ng) (missing) PLATELET MORPHOLOGY 2025-09-09 14:19 [facility] NORMAL RAMIREZ (john ng) (missing) RBC MORPHOLOGY (MULTIPLE) 2025-09-09 14:19 [facility] NORMAL RAMIREZ (john ng) (missing) WBC MORPHOLOGY (MULTIPLE) 2025-09-09 14:19 [facility] NORMAL RAMIREZ (john ng) (missing) Social History date description facility 2025-08-12 00:00 Ex-smoker (finding) [facility] 2025-08-23 00:00 Ex-smoker (finding) [facility] 2025-09-01 00:00 Ex-smoker (finding) [facility] Vital Signs date measurement value units [...]
[2025-09-09] MEDS ORDERED: LORazepam 2 MG/ML VIAL IVP PRN (17:41)
[2025-09-09 17:42] LABS: BUN - BLOOD UREA NITROGEN 14.0 mg/dL (6-20); CARBON DIOXIDE - CO2 35.0 mmol/L (21-32); CREATININE 0.9 mg/dL (0.6-1.3); GFR - MDRD 62.0 (>89)
[2025-09-09] MEDS: SODIUM CHLORIDE 0.9% 1,000 ML IV SCH (18:03)
[2025-09-09] MEDS: POTASSIUM CHLOR 10 MEQ/100 ML 10 MEQ/100 ML BAG IV SCH (18:03)
[2025-09-09] MEDS: SODIUM CHLORIDE FLUSH 0.9% 10 ML SYRINGE IVP SCH (18:04)
[2025-09-09] MEDS: PRENATAL VITAMIN TABLET PO SCH (18:04)
[2025-09-09 19:43] LABS: GLUCOSE, URINE (UA) NEGATIVE (NEGATIVE); KETONES,URINE (UA) NEGATIVE (NEGATIVE); OCCULT BLOOD,URINE NEGATIVE (NEGATIVE)
[2025-09-09 21:25] LABS: BUN - BLOOD UREA NITROGEN 15.0 mg/dL (6-20); CREATININE 0.8 mg/dL (0.6-1.3); GFR - MDRD 71.0 (>89)
[2025-09-09 21:38] LABS: CARBON DIOXIDE - CO2 33.0 mmol/L (21-32)
[2025-09-09] MEDS: ALBUTEROL NEB 2.5 MG/3 ML INH PRN (21:40)
[2025-09-09] MEDS: PANTOPRAZOLE 40 MG TABLET PO SCH (21:47)
[2025-09-10 01:03] LABS: BUN - BLOOD UREA NITROGEN 14.0 mg/dL (6-20); CARBON DIOXIDE - CO2 32.0 mmol/L (21-32); CREATININE 0.8 mg/dL (0.6-1.3); GFR - MDRD 71.0 (>89)
[2025-09-10 05:03] LABS: HCT - HEMATOCRIT 31.3 % (37.0-47.0); HGB - HEMOGLOBIN 10.8 g/dL (12.0-16.0); MEAN PLATELET VOLUME 9.6 fL (7.9-10.8); NRBC ABSOLUTE COUNT (AUTO) 0.00 x10^3/uL; NUCLEATED RED BLOOD CELLS AUTO 0.0 /100WBC; PLT - PLATELET COUNT 206 10^3/uL (130-450); RED CELL DISTRIBUTION WIDTH 12.3 % (12.0-15.0)
[2025-09-10 05:28] LABS: ALT ALANINE AMINOTRANSFERASE 17.0 IU/L (10-60); AST ASPARTATE AMINOTRANSFERASE 26.0 IU/L (10-42); BUN - BLOOD UREA NITROGEN 12.0 mg/dL (6-20); CARBON DIOXIDE - CO2 30.0 mmol/L (21-32); CREATININE 0.7 mg/dL (0.6-1.3); GFR - MDRD 82.0 (>89)
[2025-09-10] MEDS: MAGNESIUM SULFATE 2 GRAM 2 GM/50 ML BAG IV ONE (06:01)
[2025-09-10] MEDS: POTASSIUM CHLOR 10 MEQ/100 ML 10 MEQ/100 ML BAG IV SCH (06:01)
[2025-09-10] MEDS: ENOXAPARIN 40 MG/0.4 ML SYRINGE SUBQ SCH (08:33)
[2025-09-10] MEDS: THIAMINE 100 MG TABLET PO SCH (08:33)
--- NOTE | 2025-09-10 08:41 | PHARMACY PROGRESS NOTE ---
Best Possible Medication History Admit Date and Time: 09/09/25 1609 Home Medications Medication Instructions Recorded Confirmed Type lorazepam 0.5 mg tablet 0.5 mg PO DAILY PRN Anxiety 11/23/15 09/09/25 History triamterene 37.5 1 tab PO DAILY 11/23/15 11/11/13 History mg-hydrochlorothiazide 25 mg capsule albuterol sulfate 90 mcg/actuation 2 puff inhalation Q ID PRN 12/13/24 09/09/25 Rx aerosol inhaler (Ventolin HFA) shortness of breath or wheezing #6.7 grams calcipotriene 0.005 1 applic topical Q2D PRN amber h 12/13/24 09/09/25 History %-betamethasone 0.064 % topical foam (Enstilar) inhalat.spacing dev,large mask #1 ea 12/13/24 09/09/25 Rx (BreatheRite Spacer and Mask, Adult) mupirocin 2 % topical ointment 1 applic topical TID #1 5 grams 12/13/24 09/09/25 Rx (Centany) furosemide 20 mg tablet 20 mg PO DAILY PRN edema 09/09/25 History sulfamethoxazole 800 1 tab PO BID #14 tabs 09/09/25 Rx mg-trimethoprim 160 mg tablet (Bactrim DS) ciprofloxacin HCl 500 mg tablet 500 mg PO BID #10 tabs 09/08/25 09/09/25 Rx Processed by: Nursing Medications reviewed in ED?: Yes Medication History completed: Yes Secondary Source(s): Pharmacy records and Insurance records [facility] Statement: As the person ultimately responsible for medication therapy, providers are able to order a medication from an existing home medication list in [facility] via the "Reconcile Routine" prior to Confirmation of that medication by legal support manager. Such practice is discouraged except when the physician, in their clinical judgment, deems that a medical need exists for a medication without regard to previous use.
[2025-09-10 08:45] LABS: VBG PH 7.513 (7.31-7.41)
[2025-09-10 08:53] LABS: BUN - BLOOD UREA NITROGEN 11.0 mg/dL (6-20); CARBON DIOXIDE - CO2 31.0 mmol/L (21-32); CREATININE 0.7 mg/dL (0.6-1.3); GFR - MDRD 82.0 (>89)
[2025-09-10] MEDS: POTASSIUM PHOSPHATE 15 MMOL in SODIUM CHLORIDE 0.9% 250 ML IV ONE (09:43)
[2025-09-10 12:35] LABS: BUN - BLOOD UREA NITROGEN 12.0 mg/dL (6-20); CARBON DIOXIDE - CO2 28.0 mmol/L (21-32); CREATININE 0.7 mg/dL (0.6-1.3); GFR - MDRD 82.0 (>89)
[2025-09-10] MEDS: POTASSIUM CHLORIDE 20 MEQ/15 ML UDC PO SCH (14:22)
--- NOTE | 2025-09-10 14:54 | PROVIDER PROGRESS NOTE ---
Subjective Prog Note Date Prog Note Date: 09/10/25 Prog Note Time: 15:13 Subjective Subjective: Sleeping well. I woke her up this morning and she knew that she was in the hospital. We asked about hallucinations and she says she is not having any right now but has in the last couple of days. Urinary retention last night resulted in Kwok placement. She denies chest pain, palpitations, shortness of breath, abdominal pain. She would like some Tums because she has some indigestion. Current Medications Current Medications Current Medications: Current Medications Generic Name Dose Route Start Last Admin Trade Name Freq PRN Reason Stop Dose Admin Acetaminophen 650 mg 09/09/25 16:28 Acetaminophen 325 Mg Tablet PO Q4HR PRN Pain 1 to 4, or Fever Albuterol 2.5 mg 09/09/25 17:53 09/09/25 21:40 Albuterol Neb 2.5 Mg/3 Ml INH 2.5 mg QID PRN Administration shortness of breath or wheezing Calcium Carbonate/Glycine 500 mg 09/10/25 21:00 Calcium Carbonate Chew 500 Mg Tablet PO BID MARIBEL Enoxaparin Sodium 40 mg 09/10/25 09:00 09/10/25 08:33 Enoxaparin 40 Mg/0.4 Ml Syringe SUBQ 40 mg DAILY MARIBEL Administration Sodium Chloride 1,000 mls @ 100 mls/hr 09/09/25 18:00 09/10/25 14:40 Normal Saline 0.9% IV 100 mls/hr .Q10H MARIBEL Administration Lorazepam 1 mg 09/09/25 17:41 Lorazepam 2 Mg/Ml Vial IVP Q30M PRN CIWA >8 Protocol Ondansetron HCl 4 mg 09/09/25 16:28 Ondansetron Odt 4 Mg Tablet TL Q6HR PRN Nausea / Vomiting Ondansetron HCl 4 mg 09/09/25 16:28 Ondansetron 4 Mg/2 Ml Vial IVP Q6HR PRN Nausea / Vomiting Pantoprazole Sodium 40 mg 09/09/25 21:35 09/10/25 06:20 Pantoprazole 40 Mg Tablet PO 40 mg QDAC MARIBEL Administration Potassium Chloride 20 meq 09/10/25 14:00 09/10/25 14:22 Potassium Chloride 20 Meq/15 Ml Udc PO 09/10/25 16:01 20 meq Q2H MARIBEL Administration Protocol Multivit/Folic Acid/Iron 1 tab 09/09/25 18:00 09/10/25 08:33 Vitamin Tablet PO 1 tab DAILYWM MARIBEL Administration Sodium Chloride 10 ml 09/09/25 17:00 09/10/25 08:33 Sodium Chloride Flush 0.9% 10 Ml Syringe IVP 10 ml 0100,0900,1700 MARIBEL Administration Sodium Chloride 10 ml 09/09/25 16:28 Sodium Chloride Flush 0.9% 10 Ml Syringe IVP PRN PRN NEEDED PER PROVIDER ORDERS Thiamine HCl 100 mg 09/10/25 09:00 09/10/25 08:33 Thiamine 100 Mg Tablet PO 100 mg DAILY MARIBEL Administration Objective Vital Signs/Intake & Output Reviewed Vital Signs: Yes Vital Signs: Vital Signs x48h Temp Pulse Resp BP Pulse Ox 09/10/25 14:00 86 17 117/71 97 09/10/25 13:00 96 18 100/60 98 09/10/25 12:00 37.1 C 95 19 134/77 H 97 09/10/25 11:00 78 16 105/62 97 09/10/25 11:00 79 18 105/62 96 09/10/25 10:00 79 16 100/54 L 96 09/10/25 09:00 82 20 102/60 97 09/10/25 08:00 37.0 C 85 23 128/70 95 09/10/25 07:00 71 15 106/54 L 94 Intake & Output: Intake & Output 09/07/25 09/08/25 09/09/25 09/10/25 23:59 23:59 23:59 23:59 Intake Total 2426 / 2426 3413 / 3413 Output Total 2980 / 2980 1910 / 191 Balance -554 / -554 1503 / 1503 Weight (kg) 61 kg 58 kg Objective General Appearance: positive No acute distress, Alert and Other (Left arm is in a brace, segmented.) Eyes Bilateral: positive PERRL and EOMI ENT: positive No signs of dehydration Neck: positive No JVD; negative Stiff neck Respiratory: positive Chest non-tender, No respiratory distress and Breath sounds nml; negative Wheezes, Rales or Rhonchi Cardiovascular: positive Regular rate & rhythm and Systolic murmur Abdomen: positive Non-tender, No organomegaly, Nml bowel sounds and Other (Eating 50 to 100% of her food. Kwok is draining yellow clear urine.) Extremities: positive Non-tender, No pedal edema (Yesterday she had reddish scaly skin of her feet with trace edema. No edema today.) and Other (MILEY hose on); negative Full ROM (The left arm and is a hinged cast. Bruising around the elbow. But she can flex extend at the wrist, flex extend her fingers.) Neurologic/Psychiatric: positive Oriented x3 (But she is easily forgetful. Does not recall much after a few minutes), CN's nml (2-12) and Motor nml (She can go from supine to sitting, sitting to standing and nurses as well as standby assist to walker to the bathroom.No tremulousness.) Lab Results 09/10/25 04:28 09/10/25 12:15 Other Labs: Lab Results x24hrs 09/10/25 09/10/25 09/10/25 Range/Units 12:15 08:33 04:28 WBC 6.4 (4.8-10.8) x10^3/uL RBC 3.37 L (4.20-5.40) 10^6/uL Hgb 10.8 L (12.0-16.0) g/dL Hct 31.3 L (37.0-47.0) % MCV 92.9 (81.0-99.0) fL MCH 32.0 H (27.0-31.0) pg MCHC 34.5 (32.0-36.0) g/dL RDW 12.3 (12.0-15.0) % Plt Count 206 (130-450) 10^3/uL MPV 9.6 (7.9-10.8) fL Neut # (Auto) 4.0 Lymph # (Auto) 1.0 L [place] # (Auto) 1.3 H Eos # (Auto) 0.1 Baso # (Auto) 0.0 Absolute Nucleated RBC 0.00 Total Counted Band Neuts % (Manual) (0 - 10) % Abnorm Lymph % (Manual) % Nucleated RBC % 0.0 Neutrophils # (Manual) (1.5-6.6) 10^3/uL Lymphocytes # (Manual) (1.5-3.5) 10^3/uL Monocytes # (Manual) (0.0-1.0) 10^3/uL Eosinophils # (Manual) (0-0.7) 10^3/uL Basophils # (Manual) (0-0.1) 10^3/uL Differential Comment WBC Morphology (NORMAL) Platelet Estimate (NORMAL) Platelet Morphology (NORMAL) RBC Morph Micro Appear (NORMAL) VBG pH 7.513 H (7.31-7.41) Ionized Calcium 1.22 (1.09-1.30) mmol/L Sodium 122 L 121 L 119 L* (135-145) mmol/L Potassium 3.4 L 3.1 L 2.8 L (3.5-4.5) mmol/L Chloride 86 L 84 L 81 L (101-111) mmol/L Carbon Dioxide 28 31 30 (21-32) mmol/L Anion Gap 8.0 6.0 8.0 (6-13) BUN 12 11 12 (6-20) mg/dL Creatinine 0.7 0.7 0.7 (0.6-1.3) mg/dL Estimated GFR (MDRD) 82 L 82 L 82 L (>89) Glucose 119 H 108 H 98 (74-104) mg/dL Calcium 9.1 9.6 9.6 (8.5-10.3) mg/dL Phosphorus 2.3 L (2.5-5.0) mg/dL Magnesium 2.1 1.5 L (1.7-2.3) mg/dL Total Bilirubin 0.9 (0.2-1.0) mg/dL AST 26 (10-42) IU/L ALT 17 (10-60) IU/L Alkaline Phosphatase 58 (42-121) IU/L Total Protein 5.4 L (6.4-8.9) g/dL Albumin 3.2 (3.2-5.5) g/dL Globulin 2.2 (2.1-4.2) g/dL Albumin/Globulin Ratio 1.5 (1.0-2.2) TSH (0.34-5.60) uIU/mL Random Cortisol 9.9 ug/dL Urine Color Urine Clarity (CLEAR) Urine pH (5.0-7.5) PH Ur Specific Fr[place] (1.002-1.030) Urine Protein (NEGATIVE) mg/dL Urine Glucose (UA) (NEGATIVE) mg/dL Urine Ketones (NEGATIVE) mg/dL Urine Occult Blood (NEGATIVE) Urine Nitrite (NEGATIVE) Urine Bilirubin (NEGATIVE) Urine Urobilinogen (NORMAL) E.U./dL Ur Leukocyte Esterase (NEGATIVE) Ur Microscopic Review Urine Culture Comments Urine Sodium mmol/L Nasal Screen MRSA (PCR) (NEGATIVE) 09/10/25 09/09/25 09/09/25 Range/Units 00:36 20:51 19:00 WBC (4.8-10.8) x10^3/uL RBC (4.20-5.40) 10^6/uL Hgb (12.0-16.0) g/dL Hct (37.0-47.0) % MCV (81.0-99.0) fL MCH (27.0-31.0) pg MCHC (32.0-36.0) g/dL RDW (12.0-15.0) % Plt Count (130-450) 10^3/uL MPV (7.9-10.8) fL Neut # (Auto) Lymph # (Auto) [place] # (Auto) Eos # (Auto) Baso # (Auto) Absolute Nucleated RBC Total Counted Band Neuts % (Manual) (0 - 10) % Abnorm Lymph % (Manual) % Nucleated RBC % Neutrophils # (Manual) (1.5-6.6) 10^3/uL Lymphocytes # (Manual) (1.5-3.5) 10^3/uL Monocytes # (Manual) (0.0-1.0) 10^3/uL Eosinophils # (Manual) (0-0.7) 10^3/uL Basophils # (Manual) (0-0.1) 10^3/uL Differential Comment WBC Morphology (NORMAL) Platelet Estimate (NORMAL) Platelet Morphology (NORMAL) RBC Morph Micro Appear (NORMAL) VBG pH (7.31-7.41) Ionized Calcium (1.09-1.30) mmol/L Sodium 116 L* 115 L* (135-145) mmol/L Potassium 2.9 L 2.9 L (3.5-4.5) mmol/L Chloride 78 L* 73 L* (101-111) mmol/L Carbon Dioxide 32 33 H (21-32) mmol/L Anion Gap 6.0 9.0 (6-13) BUN 14 15 (6-20) mg/dL Creatinine 0.8 0.8 (0.6-1.3) mg/dL Estimated GFR (MDRD) 71 L 71 L (>89) Glucose 109 H 108 H (74-104) mg/dL Calcium 9.6 10.5 H (8.5-10.3) mg/dL Phosphorus (2.5-5.0) mg/dL Magnesium (1.7-2.3) mg/dL Total Bilirubin (0.2-1.0) mg/dL AST (10-42) IU/L ALT (10-60) IU/L Alkaline Phosphatase (42-121) IU/L Total Protein (6.4-8.9) g/dL Albumin (3.2-5.5) g/dL Globulin (2.1-4.2) g/dL Albumin/Globulin Ratio (1.0-2.2) TSH (0.34-5.60) uIU/mL Random Cortisol ug/dL Urine Color YELLOW Urine Clarity CLEAR (CLEAR) Urine pH 7.5 (5.0-7.5) PH Ur Specific [place] 1.015 (1.002-1.030) Urine Protein NEGATIVE (NEGATIVE) mg/dL Urine Glucose (UA) NEGATIVE (NEGATIVE) mg/dL Urine Ketones NEGATIVE (NEGATIVE) mg/dL Urine Occult Blood NEGATIVE (NEGATIVE) Urine Nitrite NEGATIVE (NEGATIVE) Urine Bilirubin NEGATIVE (NEGATIVE) Urine Urobilinogen 0.2 (NORMAL) (NORMAL) E.U./dL Ur Leukocyte Esterase NEGATIVE (NEGATIVE) Ur Microscopic Review NOT INDICATED Urine Culture Comments NOT INDICATED Urine Sodium 45.2 mmol/L Nasal Screen MRSA (PCR) (NEGATIVE) 09/09/25 09/09/25 09/09/25 Range/Units 17:05 17:00 14:19 WBC 8.8 (4.8-10.8) x10^3/uL RBC 3.94 L (4.20-5.40) 10^6/uL Hgb 12.6 (12.0-16.0) g/dL Hct 35.6 L (37.0-47.0) % MCV 90.4 (81.0-99.0) fL MCH 32.0 H (27.0-31.0) pg MCHC 35.4 (32.0-36.0) g/dL RDW 11.9 L (12.0-15.0) % Plt Count 225 (130-450) 10^3/uL MPV 9.5 (7.9-10.8) fL Neut # (Auto) Not Reportable Lymph # (Auto) Not Reportable [place] # (Auto) Not Reportable Eos # (Auto) Not Reportable Baso # (Auto) Not Reportable Absolute Nucleated RBC Not Reportable Total Counted 100 Band Neuts % (Manual) 0 (0 - 10) % Abnorm Lymph % (Manual) 0 % Nucleated RBC % Not Reportable Neutrophils # (Manual) 6.3 (1.5-6.6) 10^3/uL Lymphocytes # (Manual) 1.1 L (1.5-3.5) 10^3/uL Monocytes # (Manual) 1.3 H (0.0-1.0) 10^3/uL Eosinophils # (Manual) 0.1 (0-0.7) 10^3/uL Basophils # (Manual) 0.0 (0-0.1) 10^3/uL Differential Comment MANUAL DIFFERENTIAL WBC Morphology NORMAL RAMIREZ (NORMAL) Platelet Estimate NORMAL (130-450,000) (NORMAL) Platelet Morphology NORMAL RAMIREZ (NORMAL) RBC Morph Micro Appear NORMAL RAMIREZ (NORMAL) VBG pH (7.31-7.41) Ionized Calcium (1.09-1.30) mmol/L Sodium 115 L* 113 L* (135-145) mmol/L Potassium 2.8 L 2.6 L (3.5-4.5) mmol/L Chloride 68 L* 64 L* (101-111) mmol/L Carbon Dioxide 35 H 37 H (21-32) mmol/L Anion Gap 12.0 12.0 (6-13) BUN 14 14 (6-20) mg/dL Creatinine 0.9 0.9 (0.6-1.3) mg/dL Estimated GFR (MDRD) 62 L 62 L (>89) Glucose 105 H 108 H (74-104) mg/dL Calcium 11.4 H 12.2 H* (8.5-10.3) mg/dL Phosphorus (2.5-5.0) mg/dL Magnesium 1.5 L 1.2 L (1.7-2.3) mg/dL Total Bilirubin 1.2 H (0.2-1.0) mg/dL AST 36 (10-42) IU/L ALT 22 (10-60) IU/L Alkaline Phosphatase 79 (42-121) IU/L Total Protein 7.2 (6.4-8.9) g/dL Albumin 4.1 (3.2-5.5) g/dL Globulin 3.1 (2.1-4.2) g/dL Albumin/Globulin Ratio 1.3 (1.0-2.2) TSH 1.48 (0.34-5.60) uIU/mL Random Cortisol ug/dL Urine Color Urine Clarity (CLEAR) Urine pH (5.0-7.5) PH Ur Specific [place] (1.002-1.030) Urine Protein (NEGATIVE) mg/dL Urine Glucose (UA) (NEGATIVE) mg/dL Urine Ketones (NEGATIVE) mg/dL Urine Occult Blood (NEGATIVE) Urine Nitrite (NEGATIVE) Urine Bilirubin (NEGATIVE) Urine Urobilinogen (NORMAL) E.U./dL Ur Leukocyte Esterase (NEGATIVE) Ur Microscopic Review Urine Culture Comments Urine Sodium mmol/L Nasal Screen MRSA (PCR) NEGATIVE (NEGATIVE) Assessment/Plan Problem List (1) Acute hyponatremia: Impression: Severe hyponatremia. Likely hypovolemic hyponatremia due to no eating or drinking, overuse of diuretics, and drinking alcohol. - Urine sodium is 45.2 - Cortisol at 430 this morning was 9.9 - TSH 1.48. Not much change from August 2015 TSH of 1.54 - PTH, urine osmolality and serum osmolality have been collected and are pending. She has been on normal saline. She has gone from 115, to 119, and 121 this morning. I plan to continue BMPs every 4 hours. Continue normal saline at 75 cc an hour Continue to ambulate in her room to reduce the risk of deconditioning due to the loss (2) Acute hypokalemia: Impression: Potassium 2.3 and she is receiving 40 mill equivalents over 4 hours of potassium chloride, IV. She will be rechecked Later this afternoon and I will supplement again (3) Hypomagnesemia: Impression: Magnesium 1.5 this morning. Again I will supplement 2 g of magnesium and recheck this afternoon (4) Hypercalcemia: Impression: Total protein is low at 5.4. Calcium started out of 10.5 on admission and is 9.1 today. PTH is pending. She is asking for Tums and I have ordered that. (5) Chronic alcohol use: Impression: On CICT protocol. Lorazepam is 1 mg every 2 hours as needed. She was received 1 mg at 5:45 yesterday evening and none has been required since then. She remains on the CIWA protocol with a low score. In addition to the CIWA protocol she is on vitamins with folic acid and iron. And thiamine p.o. (6) Hypertension: Impression: At home she is on triamterene hydrochlorothiazide for blood pressure. Currently not being given due to her hyponatremia. Today's blood pressure is 144/89. No symptoms of headache or CHF. If her blood pressure remains elevated above 130/70, but below 170/90, I would recommend she follow-up with her primary care provider. Qualifiers: Hypertension type: unspecified Qualified Code(s): I10 - Essential (primary) hypertension
[2025-09-10] MEDS: CALCIUM CARBONATE CHEW 500 MG TABLET PO SCH (15:29)
[2025-09-10 16:20] LABS: VBG PH 7.435 (7.31-7.41)
[2025-09-10 16:30] LABS: PHOSPHORUS 1.9 mg/dL (2.5-5.0)
[2025-09-10] MEDS: NEUTRA-PHOS 250 MG TABLET PO SCH (17:09)
[2025-09-10 18:36] LABS: BUN - BLOOD UREA NITROGEN 11.0 mg/dL (6-20); CARBON DIOXIDE - CO2 25.0 mmol/L (21-32); CREATININE 0.7 mg/dL (0.6-1.3); GFR - MDRD 82.0 (>89)
[2025-09-10 23:59] LABS: VBG PH 7.516 (7.31-7.41)
[2025-09-11 00:14] LABS: PHOSPHORUS 2.0 mg/dL (2.5-5.0)
[2025-09-11 00:36] LABS: BUN - BLOOD UREA NITROGEN 9.0 mg/dL (6-20); CARBON DIOXIDE - CO2 26.0 mmol/L (21-32); CREATININE 0.6 mg/dL (0.6-1.3); GFR - MDRD 98.0 (>89)
[2025-09-11] MEDS: SODIUM CHLORIDE 0.9% 1,000 ML IV SCH (01:26)
[2025-09-11] MEDS: POTASSIUM CHLORIDE 20 MEQ/15 ML UDC PO SCH (04:41)
[2025-09-11] MEDS: NEUTRA-PHOS 250 MG TABLET PO SCH ×2 (04:42→13:23)
[2025-09-11 05:06] LABS: VBG PH 7.478 (7.31-7.41)
[2025-09-11 05:28] LABS: PHOSPHORUS 1.8 mg/dL (2.5-5.0)
[2025-09-11 05:29] LABS: BUN - BLOOD UREA NITROGEN 8.0 mg/dL (6-20); CARBON DIOXIDE - CO2 25.0 mmol/L (21-32); CREATININE 0.6 mg/dL (0.6-1.3); GFR - MDRD 98.0 (>89)
[2025-09-11] MEDS: MAGNESIUM OXIDE 400 MG TABLET PO ONE (06:31)
[2025-09-11 12:21] LABS: VBG PH 7.408 (7.31-7.41)
[2025-09-11 12:28] LABS: BUN - BLOOD UREA NITROGEN 8.0 mg/dL (6-20); CARBON DIOXIDE - CO2 25.0 mmol/L (21-32); CREATININE 0.6 mg/dL (0.6-1.3); GFR - MDRD 98.0 (>89); PHOSPHORUS 1.6 mg/dL (2.5-5.0)
[2025-09-11] MEDS: POTASSIUM CHLORIDE 20 MEQ/15 ML UDC PO ONE (13:22)
[2025-09-11] MEDS: MAGNESIUM OXIDE 400 MG TABLET PO SCH (13:22)
--- NOTE | 2025-09-11 17:23 | PROVIDER PROGRESS NOTE ---
Subjective Prog Note Date Prog Note Date: 09/11/25 Prog Note Time: 17:12 Subjective Pt reports feeling: No change Subjective: [facility]. She still is hypokalemic, hypophosphatemic and hypomagnesemic this morning and has required supplementation. She has reluctantly agreed to long term facility placement for temporary rehab. She denies chest pain, palpitations, shortness of breath. Daughter is in the room with her this afternoon and I took the opportunity to do advance care planning conversation. Please read note under separate dictation. Current Medications Current Medications Current Medications: Current Medications Generic Name Dose Route Start Last Admin Trade Name Freq PRN Reason Stop Dose Admin Acetaminophen 650 mg 09/09/25 16:28 Acetaminophen 325 Mg Tablet PO Q4HR PRN Pain 1 to 4, or Fever Albuterol 2.5 mg 09/09/25 17:53 09/09/25 21:40 Albuterol Neb 2.5 Mg/3 Ml INH 2.5 mg QID PRN Administration shortness of breath or wheezing Calcium Carbonate/Glycine 500 mg 09/10/25 16:00 09/11/25 08:28 Calcium Carbonate Chew 500 Mg Tablet PO 500 mg BID MARIBEL Administration Enoxaparin Sodium 40 mg 09/10/25 09:00 09/11/25 08:29 Enoxaparin 40 Mg/0.4 Ml Syringe SUBQ 40 mg DAILY MARIBEL Administration Sodium Chloride 1,000 mls @ 75 mls/hr 09/11/25 02:00 09/11/25 12:39 Normal Saline 0.9% IV 75 mls/hr .[id number] MARIBEL Administration Lorazepam 1 mg 09/09/25 17:41 Lorazepam 2 Mg/Ml Vial IVP Q30M PRN CIWA >8 Protocol Magnesium Oxide 400 mg 09/11/25 13:00 09/11/25 13:22 Magnesium Oxide 400 Mg Tablet PO 09/11/25 19:01 400 mg Q6H MARIBEL Administration Protocol Ondansetron HCl 4 mg 09/09/25 16:28 Ondansetron Odt 4 Mg Tablet TL Q6HR PRN Nausea / Vomiting Ondansetron HCl 4 mg 09/09/25 16:28 Ondansetron 4 Mg/2 Ml Vial IVP Q6HR PRN Nausea / Vomiting Pantoprazole Sodium 40 mg 09/09/25 21:35 09/11/25 06:30 Pantoprazole 40 Mg Tablet PO 40 mg QDAC MARIBEL Administration Multivit/Folic Acid/Iron 1 tab 09/09/25 18:00 09/11/25 08:28 Vitamin Tablet PO 1 tab DAILYWM MARIBEL Administration Sodium Chloride 10 ml 09/09/25 17:00 09/11/25 16:28 Sodium Chloride Flush 0.9% 10 Ml Syringe IVP 10 ml 0100,0900,1700 MARIBEL Administration Sodium Chloride 10 ml 09/09/25 16:28 Sodium Chloride Flush 0.9% 10 Ml Syringe IVP PRN PRN NEEDED PER PROVIDER ORDERS Thiamine HCl 100 mg 09/10/25 09:00 09/11/25 08:28 Thiamine 100 Mg Tablet PO 100 mg DAILY MARIBEL Administration Objective Vital Signs/Intake & Output Reviewed Vital Signs: Yes Vital Signs: Vital Signs x48h Temp Pulse Pulse Resp BP Pulse Ox 09/11/25 16:26 36.8 C 86 16 144/80 H 96 09/11/25 11:00 36.5 C 09/11/25 11:00 81 20 153/93 H 97 09/11/25 10:00 83 18 121/74 95 09/11/25 10:00 37.5 C 86 18 121/74 95 Intake & Output: Intake & Output 09/08/25 09/09/25 09/10/25 09/11/25 23:59 23:59 23:59 23:59 Intake Total 2426 / 2426 3668 / 3668 2564 / 2564 Output Total 2980 / 2980 2820 / 2820 1165 / 1165 Balance -554 / -554 848 / 848 1399 / 1399 Weight (kg) 61 kg 58 kg 58 kg Objective General Appearance: positive No acute distress (Looks older than stated age. 5 feet 2 inches, 58 kg) and Other (Sitting up in chair, slight psychomotor slowing and I asked the daughter if this is baseline. She says that mom is usually very sharp, interactive with lucid conversation. This is not baseline) Eyes Bilateral: positive PERRL and EOMI ENT: positive No signs of dehydration Neck: positive No JVD; negative Stiff neck Respiratory: positive Chest non-tender, No respiratory distress and Breath sounds nml Cardiovascular: positive Regular rate & rhythm, No murmur and No gallop Abdomen: positive Non-tender, No organomegaly and Nml bowel sounds Extremities: positive Non-tender, Full ROM and Nml appearance; negative Calf tenderness Neurologic/Psychiatric: positive CN's nml (2-12), Disoriented to time, Slurred/abnml speech and Depressed mood/affect; negative Motor nml (No focal deficits but slow response times. Generalized weakness. CIWA score 0) Lab Results 09/10/25 04:28 09/11/25 11:58 Other Labs: Lab Results x24hrs 09/11/25 09/11/25 09/10/25 Range/Units 11:58 04:59 23:51 VBG pH 7.408 7.478 H 7.516 H (7.31-7.41) Ionized Calcium 1.16 1.17 1.14 (1.09-1.30) mmol/L Sodium 128 L 129 L 127 L (135-145) mmol/L Potassium 3.7 3.4 L 3.4 L (3.5-4.5) mmol/L Chloride 97 L 98 L 96 L (101-111) mmol/L Carbon Dioxide 25 25 26 (21-32) mmol/L Anion Gap 6.0 6.0 5.0 L (6-13) BUN 8 8 9 (6-20) mg/dL Creatinine 0.6 0.6 0.6 (0.6-1.3) mg/dL Estimated GFR (MDRD) 98 98 98 (>89) Glucose 100 109 H 96 (74-104) mg/dL Calcium 8.4 L 8.6 8.3 L (8.5-10.3) mg/dL Phosphorus 1.6 L 1.8 L 2.0 L (2.5-5.0) mg/dL Magnesium 1.6 L 1.6 L 1.7 (1.7-2.3) mg/dL 09/10/25 Range/Units 18:09 VBG pH (7.31-7.41) Ionized Calcium (1.09-1.30) mmol/L Sodium 123 L (135-145) mmol/L Potassium 4.0 (3.5-4.5) mmol/L Chloride 90 L (101-111) mmol/L Carbon Dioxide 25 (21-32) mmol/L Anion Gap 8.0 (6-13) BUN 11 (6-20) mg/dL Creatinine 0.7 (0.6-1.3) mg/dL Estimated GFR (MDRD) 82 L (>89) Glucose 110 H (74-104) mg/dL Calcium 9.0 (8.5-10.3) mg/dL Phosphorus (2.5-5.0) mg/dL Magnesium (1.7-2.3) mg/dL Assessment/Plan Problem List (1) Acute hyponatremia: Impression: Severe hyponatremia. Likely hypovolemic hyponatremia due to no eating or drinking, overuse of diuretics, and drinking alcohol. - Urine sodium is 45.2 - Cortisol at 430 this morning was 9.9 - TSH 1.48. Not much change from August 2015 TSH of 1.54 - PTH, urine osmolality and serum osmolality have been collected and are pending. She has been on normal saline. She has gone from 115, to 119, and 121 yesterday and is 128 today. I plan to continue BMPs every 4 hours. Continue normal saline at 75 cc an hour Continue to ambulate in her room to reduce the risk of deconditioning due to the loss Transfer to [facility] status. Physical therapy order given. Tentative disposition is to long term facility since she is so weak and cannot take care of herself. She has her grandson and a family friend is roommates. They have already told her they cannot take care of her in this condition. Please see advance care planning conversation under separate note (2) Acute hypokalemia: Impression: Potassium 2.3 yesterday and she received 40 mill equivalents over 4 hours of potassium chloride, IV. This morning she was 3.4 and supplemented again. She was 3.7, 6 hours later. I will continue to monitor daily until she leaves. She may need to go home on potassium. (3) Hypomagnesemia: Impression: Magnesium 1.5 on 09/10 and supplemented . This am 1.6 and I gave 800 mg po mag. This afternoon 1.6 so I will give IVP. (4) Hypercalcemia: Impression: Total protein is low at 5.4. Calcium started out of 10.5 on admission and is 8.4 today. PTH is pending. (5) Chronic alcohol use: Impression: On [facility] protocol. Lorazepam is 1 mg every 2 hours as needed. She was received 1 mg at 5:45 09/09 evening and none has been required since then. I am stopping the CIWA protocol. She will remain on thiamine and folate. Thiamine switched to p.o. (6) Hypertension: Impression: At home she is on triamterene hydrochlorothiazide for blood pressure. Currently not being given due to her hyponatremia. Today's blood pressure is 144/80. No symptoms of headache or CHF. If her blood pressure remains elevated above 130/70, but below 170/90, I would recommend she follow-up with her primary care provider. Qualifiers: Hypertension type: unspecified Qualified Code(s): I10 - Essential (primary) hypertension
--- NOTE | 2025-09-11 17:26 | ADVANCE CARE PLANNING NOTE ---
Advance Care Planning Planning Encounter Date: 09/11/25 Time: 17:23 Purpose: Establish care goals, CODE STATUS, Parties in Attendance: Daughter who is the designated DPOA, hospitalist, and patient Decisional Capacity of the Patient: Oriented to person, place, time and situation. Rampart through the conversation she decided that she not want to make any decisions at all and the rest of the conversation held with daughter in the presence Of the patient Diagnosis for Encounter (1) Chronic alcohol use: Summary: Drank all of her life. Stopped drinking 1 daughter was born. Resumed drinking when daughter was 15. Daughter is now 52. Encounter Subjective/Patient's Story: [place] was in [place] main occupation was that of [employer]. Her is . She had 2 children but 1 child in childhood. [place] has a son. That grandson lives with the patient in a roommate situation. Her daughter had become close with a gentleman older than her. She lived with him temporarily and while living with him her mom and son lived with him as well. Daughter moved out to live with her boyfriend and now the patient, and grandson still live with this family friend. They will pay rent and do not own this house. She tells me that they are not floridalma be able to take care of her if she needs assistance with activities of daily living. While they are willing to clean a house, do laundry, do the grocery shopping or cook, they are not willing to help her take a bath, get off the toilet, or change her diaper. She has been an alcoholic all of her life. Stopped drinking when the daughter was born, but resumed drinking when the daughter was about 15. So she has been steadily drinking for 37 years. She drinks about 5 apple ciders daily, which are about 8% alcohol. She takes Ativan every morning for anxiety, but may be helping her get through acute withdrawal in the mornings. She has never been hospitalized for alcohol withdrawal before nor had alcohol-related seizures. She has never gone through rehab. She denies that she has a drinking problem. When reviewing previous records, an abdominal ultrasound completed 10/12 does note cirrhotic changes in the liver. This was followed by an abdominal MRI done 03/13 which shows marked hepatic steatosis. She has bilateral feet swelling, likely a result of venous stasis. For this, she has been taking Lasix every day. She is also on hydrochlorothiazide. She does not use a walker or a cane. She has a history of falls. The most recent fall was 3 weeks ago. Sitting in a rocking chair and fell forward. She dislocated her left elbow and had a [facility]. She is still wearing her brace. She had a preliminary advance care planning conversation with the admitting provider on September 09. At that time CODE STATUS was discussed. The patient stated that she really did not want to talk about it right then. With her daughter present, I asked the patient again about CODE STATUS. Had she thought further about what her wishes were if she did not have a pulse or pressure? She again stated that she did not want to think about it and did not want to make any decisions. I did gently point out that if she were to become unresponsive, that would leave the decision in her daughter's hands. It would be helpful to her daughter and the medical staff at this hospital, if she were to at least have an idea of what she wanted. She again stated that she absolutely did not want to talk about this and was not willing to make a decision now or in the near future. I then asked permission to advance the conversation about goals for the future. She denies that she is an alcoholic and asked that she has no reason to go to rehab. While she recognizes that her roommates are not going to be able to take care of her, she does not want to think about future plans if she becomes so disabled that someone is to take care of her. Again she stated that she did not want to have this conversation. I proceeded to have a conversation with her daughter in her presence with daughter's permission. Daughter said something would have to be done because she cannot take care of her mom. And she concurs that her son and family friend would not be able to take care of her mom. She addressed her mom directly and said that they would have to talk about this down the road. She was willing to respect mom's wish not to have any discussion now but would need to address it later. Objective/Medical Story: Patient is a 71-year-old female with a history of chronic alcohol abuse, hypertension who presents due to increased weakness and lethargy at home. History is taken by patient, as well as daughter at bedside. About 3 weeks ago, she was sitting on a rocking chair, and she fell forward. She dislocated her left elbow, and they went to [facility]. Here, it was reduced, and a cast was placed. They return to the emergency room on 09/07 for urinary frequency and dysuria for the last week. She was discharged home with ciprofloxacin. Her daughter brought her back in today because she continues to be weak at home. About 3 months ago, she was admitted to the hospital for pneumonia. Since then, she has had a decreased appetite, and has been barely eating meals. She lives with her grandson who helps with cooking. She has a history of chronic alcohol use. She drinks about 5 apple ciders daily, which are about 8% alcohol. She takes Ativan every morning for anxiety, but may be helping her get through acute withdrawal in the mornings. She has never been hospitalized for alcohol withdrawal before nor had alcohol-related seizures. When reviewing previous records, an abdominal ultrasound completed 10/12 does note cirrhotic changes in the liver. This was followed by an abdominal MRI done 03/13 which shows marked hepatic steatosis. She has bilateral feet swelling, likely a result of venous stasis. For this, she has been taking Lasix every day. She is also on hydrochlorothiazide. At this time, she denies any dizziness, lightheadedness. She does state that she feels weaker than usual. Past medical history includes hypertension, anxiety, chronic alcohol use. Severe hyponatremia. Likely hypovolemic hyponatremia due to no eating or drinking, overuse of diuretics, and drinking alcohol. - Urine sodium is 45.2 - Cortisol at 430 this morning was 9.9 - TSH 1.48. Not much change from August 2015 TSH of 1.54 - PTH, urine osmolality and serum osmolality have been collected and are pending. She has been on normal saline. She has gone from 115, to 119, and 121 yesterday and is 128 today. Daughter states that mom is with psychomotor slowing. She is much more slow in response time, more disoriented and that she does not know the date or (less and frequently) where she is. At baseline the patient is usually alert and oriented to person, place, time and situation with a much more rapid fire speech pattern and movement. I plan to continue BMPs every 4 hours. Continue normal saline at 75 cc an hour Continue to ambulate in her room to reduce the risk of deconditioning due to the loss Transfer to [facility] Surg status from ICU status. Physical therapy order given. Tentative disposition is to alf facility since she is so weak and cannot take care of herself. She is amenable to this solution. Goals of Care: Currently unclear since the patient is not willing to share that with her daughter or myself. I explained to the patient that many patients take some time to get to some conclusions. But to please try and come to some conclusions over the next few weeks if not months to help her daughter and family decide what to do for down the road. Additional Discussion: 1. I have explained to both she and her daughter that she needs to establish a DPOA. At least get that paperwork signed so the daughter can make decisions. 2. I have asked the daughter to think about decision she would have to make if her mother decides not to make any decisions at all, and if mom were to come in with no pulse or pressure, what would she like us to do since we will be turning to her to make decisions. 3. I am asking social work to give information on opportunities for treating alcohol abuse. She will leave them at the bedside for the patient and daughter to peruse for possible future treatment. Code Status: Attempt Resuscitation Time spent on advance care plannin minutes
--- NOTE | 2025-09-11 17:29 | PT Plan of Care ---
PT Inpatient Plan of Care DIAGNOSIS Diagnosis: UTI, hypoNa, hypoK, hypoMg, hyperCA Referring Provider: Jessica Patrick Patient Status: Inpatient CHIEF COMPLAINT Chief Complaint: progressive weakness Onset of Chief Complaint: RN PALLIATIVE CARE on 09/09/25 MEDICAL/SURGICAL HISTORY Medical History (Updated 09/09/25 @ 17:51 by Coby Jha MD) Psoriasis Surgical History History of surgery on wrist BALANCE/FUNCTIONAL RESULTS Sitting Balance: Good Standing Balance: Fair ASSESSMENT Assessment: The pt is a 70 y/o F who arrived to the ED on 09/09/25 due to progressive weakness over the past 3-4 weeks, she was hospitalized with UTI, hypoNa, hypoK, hypoMg, hyperCA. Of note about 4wweks ago the pt sustained a GLF that resulted in a L elbow dislocation, she went to where it was reduced without surgical intervention and placed in a hinged brace. She is scheduled to see ortho for her first follow up on 09/13/25, please see chart for complete med ical hx. The pt was received resting comfortably sitting up in a recliner while visiting with her daughter, she presented today with decreased B UE and LE strength, decreased activity tolerance, and impaired balance which limited her tolerance with all functional mobility. At this time recommend continued skilled PT intervention while in the acute setting and DC to SNF for further rehab once pt medically stable as she is functioning below her baseline level of Ind. This plan was discussed with the pt and her daughter, they were both in agreement with this. At the end of the session the pt was sitting up in a chair with call light in reach, chair alarm in place and on, and all needs met. RN and MD updated on pt's status and DC rec. PATIENT/FAMILY GOALS Patient/Family Goals: TO be strong enough to go back home GOALS Improve supine to sit to:: Minimal Assist Improve sit to stand to:: Contact Guard Improve pivot transfer ability to:: Contact Guard Improve sit to supine to:: Minimal Assist Improve gait ability to:: CGA Advance Assistive Device to:: Front Wheeled Walker Increase distance walked to (in feet):: 75 Improve Sitting Balance to:: Good PLAN Frequency: 1-2x/day Duration: Until goals are met DISCHARGE RECOMMENDATIONS Discharge Location: [facility] Facility Support/Services Needed: With assist Other Discharge Equipment: TBD Transport Needs at Discharge: Personal vehicle
[2025-09-11] MEDS: CALCIUM CARBONATE CHEW 500 MG TABLET PO SCH (22:33)
--- NOTE | 2025-09-12 12:18 | Discharge Summary ---
"Discharge Summary Admit Date: 09/09/25 Discharge Date: 09/12/25 Discharging Provider: Augustine Dorsey Primary Care Provider: Virgil Causey Code Status: Attempt Resuscitation Discharge [facility] Name: [facility] DIAGNOSES Discharge Diagnoses with Status of Each Condition: ## Acute hyponatremia, improved Sodium on day of discharge 128. Stabilized. On admission sodium was 113. Likely due to poor oral intake, diuretics, and heavy alcohol consumption. Urine sodium 45. Early a.m. cortisol was 9.9. TSH 1.5. She was resuscitated with normal saline. This been discontinued on day of discharge. She is eating and drinking. She is limited in ambulation, PT recommending discharge to SNF - Discharge planned 09/12 in stable condition to [facility] - Will need repeat BMP in 4 weeks - Continue abstain from alcohol ## Acute hypokalemia, resolved ## Hypomagnesemia, improved Potassium increased from 2.6 on admission with aggressive repletion. Is up to 3.7 on day of discharge. This was with an attendant magnesium of 1.5. This increased with oral and IV repletion. - Continue to encourage oral intake - Magnesium supplementation 400mg qd - Recheck BMP with mag in 4 weeks as above. ## Hypercalcemia: Total protein is low at 5.4. Calcium started out of 10.5 on admission and is 8.4 at discharge. PTH is pending. - Likely 2/2 diuretic, hypovolemia - F/U PTH with PCP, pending ## Chronic alcohol use Patient was treated with CIWA protocol during this hospitalization. She has not required any since 09/09. CIWA protocol was discontinued on 09/11. She has been started on thiamine and folate supplementation. Continues on these at discharge ## Hypertension, stable Chronic hypertension on triamterene hydrochlorothiazide. She was discontinued on these medications due to her hyponatremia as above. She is asymptomatic with regard to her hypertension. Her systolics are running in the 150s. She needs to return back on a blood pressure medication after stabilizing and follow-up with her primary care doctor. - Resume antihypertensives, avoiding thiazides with PCP in the next 4 to 6 weeks. ## Acute urinary retention ## Acute cystitis, resolved Of unclear etiology. She was started on a Kwok when she first got to the hospital. Kwok has been discontinued on day of discharge. She has recently been treated for UTI. She completed 3 days of treatment. She seems symptomatic. She had a polymicrobial culture. HPI History of Present Illness: Patient is a 71-year-old female with a history of chronic alcohol abuse, hypertension who presents due to increased weakness and lethargy at home. History is taken by patient, as well as daughter at bedside. About 3 weeks ago, she was sitting on a rocking chair, and she fell forward. She dislocated her left elbow, and they went to [facility]. Here, it was reduced, and a cast was placed. They return to the emergency room on 09/07 for urinary frequency and dysuria for the last week. She was discharged home with ciprofloxacin. Her daughter brought her back in today because she continues to be weak at home. About 3 months ago, she was admitted to the hospital for pneumonia. Since then, she has had a decreased appetite, and has been barely eating meals. She lives with her grandson who helps with cooking. She has a history of chronic alcohol use. She drinks about 5 apple ciders daily, which are about 8% alcohol. She takes Ativan every morning for anxiety, but may be helping her get through acute withdrawal in the mornings. She has never been hospitalized for alcohol withdrawal before nor had alcohol-related seizures. When reviewing previous records, an abdominal ultrasound completed 10/12 does note cirrhotic changes in the liver. This was followed by an abdominal MRI done 03/13 which shows marked hepatic steatosis. She has bilateral feet swelling, likely a result of venous stasis. For this, she has been taking Lasix every day. She is also on hydrochlorothiazide. At this time, she denies any dizziness, lightheadedness. She does state that she feels weaker than usual. Past medical history includes hypertension, anxiety, chronic alcohol use. Medications include triamterenehydrochlorothiazide, Lasix, albuterol inhaler which was prescribed to her after her episode of pneumonia. She has no known drug allergies, but does get hallucinations when she take sulfa antibiotics. Previous surgical history includes a left wrist surgery. Her alcohol use history is as above. She was a former smoker, with about a 40- year pack history, and quit about 10 years ago. She denies any recreational drug use. She ambulates without any assistive devices. 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 Advance care planning was discussedpatient would like to think little further about her CODE STATUS. She has not filled out a POLST before. Her DPOA or next contact will be her daughter, [phone]. She is admitted as inpatient as more than two midnights are expected. CONSULTS | PROCEDURES Consultations: None Procedures: Head CT 09/09 HOSPITAL COURSE Hospital Course: Patient presented with increased weakness and lethargy at home. She was found to be severely hyponatremic. Her presentation was most consistent with hypovolemic hyponatremia. She was started on fluids and her sodium has been increasing. She is stabilized on the high 120s. Her strength is returning. She is deconditioned enough that she has been recommended to discharge to senior living for further rehab. The etiology of her hyponatremia is likely multifactorial in the setting of her chronic alcohol use, thiazide diuretic at baseline. Her poor appetite over the ensuing days prior to her hospitalization likely precipitated. She has been discontinuing her thiazide diuretic. Her blood pressures remain in the 150s systolic. She is asymptomatic with regard to this. She should continue holding thiazide diuretic. She has been started on thiamine and folate supplementation given her chronic alcohol use. She is eating and drinking. No need to fluid resuscitate any further. She should have a BMP and magnesium level checked in the next 4 to 6 weeks with follow-up with her primary care doctor to consider resuming on a nonthiazide antihypertensive. ALLERGIES Allergies Allergy/AdvReac Type Severity Reaction Status Date / Time Sulfa (Sulfonamide AdvReac Hallucinati Verified 09/09/25 15:14 Antibiotics) ons MEDICATIONS Ambulatory Orders Medication Instructions Recorded Confirmed lorazepam 0.5 mg tablet 0.5 mg PO DAILY PRN Anxiety 11/23/15 09/09/25 albuterol sulfate 90 mcg/actuation 2 puff inhalation Q ID PRN 12/13/24 09/09/25 aerosol inhaler (Ventolin HFA) shortness of breath or wheezing #6.7 grams calcipotriene 0.005 1 applic topical Q2D PRN amber h 12/13/24 09/09/25 %-betamethasone 0.064 % topical foam (Enstilar) inhalat.spacing dev,large mask #1 ea 12/13/24 09/09/25 (BreatheRite Spacer and Mask, Adult) mupirocin 2 % topical ointment 1 applic topical TID #1 5 grams 12/13/24 09/09/25 (Centany) sulfamethoxazole 800 1 tab PO BID #14 tabs 09/09/25 mg-trimethoprim 160 mg tablet (Bactrim DS) acetaminophen 325 mg tablet 650 mg (2 x 325 mg) PO Q4H R PRN 09/12/25 Pain 1 to 4, or Fever #100 tabs magnesium oxide 400 mg PO DAILY #30 tabs pantoprazole 40 mg tablet,delayed 40 mg PO QDAC #30 ta bs 09/12/25 release polyethylene glycol 3350 17 gram 17 g PO DAILY PRN con stipation #30 09/12/25 oral powder packet ea vit,calcium 27-ferrous 1 tab PO DAILYWM #30 t abs 09/12/25 fum 60 mg iron-folic acid 1 mg tablet (Trinatal Rx 1) thiamine mononitrate (vit B1) 100 100 mg PO DAILY #30 tabs 09/12/25 mg tablet (Vitamin B-1 (mononitrate)) PHYSICAL EXAM AT DISCHARGE Vital Signs: Vital Signs x48h Temp Pulse Resp BP Pulse Ox 09/12/25 07:58 36.7 C 89 16 154/97 H 96 LABS 09/10/25 04:28 09/11/25 11:58 DIAGNOSTIC IMAGING Diagnostic Imaging Results: Final report reviewed Diagnostic Imaging Results Comments: CT head from 09/09 without any intracranial pathology or acute skull fracture noted. FOLLOW UP Follow Up: PCP in 4 weeks with BMP and magnesium level at that time. TIME SPENT Time Spent in Discharge (Minutes): 41 Discharge Plan Discharge Patient Disposition: [facility] DC/Xfer Condition: Stable Medically Cleared Date:: 09/12/25 Prescriptions: New acetaminophen 325 mg Tablet 650 mg PO Q4HR PRN (Reason: Pain 1 to 4, or Fever) Qty: 100 0RF Trinatal Rx 1 60 mg iron-1 mg Tablet 1 tab PO DAILYWM Qty: 30 0RF thiamine mononitrate (vit B1) [Vitamin B-1 (mononitrate)] 100 mg Tablet 100 mg PO DAILY Qty: 30 0RF polyethylene glycol 3350 17 gram Powder In Packet 17 g PO DAILY PRN (Reason: constipation) Qty: 30 0RF pantoprazole 40 mg Tablet,Delayed Release (Dr/Ec) 40 mg PO QDAC Qty: 30 0RF magnesium oxide 400 mg magnesium tablet 400 mg PO DAILY Qty: 30 0RF Continued lorazepam 0.5 MG tablet 0.5 mg PO DAILY PRN (Reason: Anxiety) sulfamethoxazole-trimethoprim [Bactrim DS] 800-160 mg tablet 1 tab PO BID Qty: 14 0RF Enstilar 0.005-0.064 % foam 1 applic topical Q2D PRN (Reason: rash) Patient Comments: APPLY TO PSORIASIS AREAS ON ENTIRE BODY EVERY OTHER DAY NEEDED... (REFER TO PRESCRIPTION NOTES). albuterol sulfate [Ventolin HFA] 90 mcg/actuation HFA aerosol inhaler 2 puff inhalation QID PRN (Reason: shortness of breath or wheezing) Qty: 6.7 2RF (DME) BreatheRite Spacer-Mask,Adult Spacer See Rx Instructions .MEDSUPPLY Qty: 1 0RF Rx Instructions: As directed mupirocin [Centany] 2 % ointment 1 applic topical TID Qty: 15 1RF Discontinued triamterene-hydrochlorothiazid 1 EACH capsule 1 tab PO DAILY furosemide 20 mg tablet 20 mg PO DAILY PRN (Reason: edema) Patient Comments: TAKE 1 TABLET BY MOUTH ONCE DAILY NEEDED FOR LEG OR FOOT SWELLING ciprofloxacin HCl 500 mg tablet 500 mg PO BID Qty: 10 0RF Activity Restrictions: Activity as Tolerated Diet: Regular Health Concerns: You have been treated for low sodium (hyponatremia) related to chronic alcohol use.Please follow these instructions to help prevent complications and support your recovery: * Fluid Intake:Limit daily fluid intake to 11.5 liters (about 46 cups), unless otherwise directed. This helps prevent your sodium from dropping further. * Alcohol Use:Avoid alcohol, as it can worsen sodium imbalance and increase your risk of serious complications.[2-3] * Diet:Eat regular, balanced meals with adequate protein and salt. Malnutrition and low potassium can make hyponatremia worse. * Medications:Take your medications as prescribed. Do not restart any diuretics or laxatives unless your doctor tells you to. I've stopped your hydrochlorothiazide. You will need to follow-up with your doctor to restart on other high blood pressure medications in the next 4 weeks. * Monitoring:Watch for symptoms such as confusion, severe headache, trouble walking, muscle weakness, nausea, vomiting, or seizures. These may be signs your sodium is too low or changing too quickly. * Follow-Up:Get your blood sodium and potassium checked as scheduled. Rapid changes in sodium can cause serious brain problems (osmotic demyelination syndrome), especially in people with alcohol use, liver disease, or poor nutrition. * Nutrition:If you have trouble eating, ask about seeing a dietitian. Good nutrition helps your body recover and keeps your sodium stable. * When to Seek Help:Go to the emergency room if you have confusion, trouble speaking, trouble moving, fainting, or seizures. Summary:Careful fluid restriction, avoiding alcohol, and regular follow-up are cade to safe recovery from hyponatremia. Always follow your care team's instructions and report any new or worsening symptoms promptly. Print Language: Nicaraguan Patient Instructions: Hyponatremia Dc Stand Alone Forms: SNF Discharge Follow-up Care: VIRGIL CAUSEY ARNP [Primary Care Provider, Nurse Practitioner] Vitals documented within 30 minutes of discharge?: Yes"
[2025-09-12 14:43] VITALS: BP 133/76; TEMP 98.8; O2SAT 98
== END 2025-09-12 13:40 | DRG 690 ==
LOC: ED 13:47 → ICU 16:09 → SUATTDRO 16:09 → ICU 16:54 → MS3 09-11 11:53
PROVIDERS: ADMIT Internal Medicine; ATTEND Student in an Organized Health Care Education/Training Program